=== PATIENT | female | born 1955 | race Caucasian/White ===

== ENCOUNTER 2017-12-11 07:29 | Day surgery (SDC) | payer SELFPAY ==
[~2017-12-11 07:29] MED LIST: Lactated Ringers 1,000 ML IV SCH; Lidocaine 2% 5 ML SDV ONE; Propofol 200 MG/20 ML SDV ONE; Sodium Chloride 0.9% 10 ML Syringe FLUSH PRN; Sodium Chloride 0.9% 2.5 ML Syringe FLUSH PRN; fentaNYL 100 MCG/2 ML SDV ONE
--- NOTE | 2017-12-11 09:05 | PCM.PREANE ---
Preanesthetic Assessment - Anesthesia/Transfusion/Family Hx Anesthesia History: Prior Anesthesia Without Reaction Transfusion History: No Prior Transfusion(s) - Review of Systems General: No Symptoms Pulmonary: No Symptoms Cardiovascular: No Symptoms Gastrointestinal: No Symptoms Neurological: No Symptoms - Physical Assessment NPO Status Date: 12/10/17 Height: 1.63 m Weight: 136.985 kg ASA Class: 4 Mental Status: Alert & Oriented x3 Airway Class: Mallampati = 1 Dentition: Reports: Normal Dentition ROM/Head Extension: Full Lungs: Clear to Auscultation, Normal Respiratory Effort Cardiovascular: Regular Rate, Regular Rhythm - Allergies Allergies/Adverse Reactions: Allergies Allergy/AdvReac Type Severity Reaction Status Date / Time polymyxin B Allergy Redness Verified 12/04/17 14:57 Sulfa (Sulfonamide Allergy Rash Verified 12/04/17 14:57 Antibiotics) trimethoprim Allergy Redness Verified 12/04/17 14:57 - Blood Blood Available: No - Anesthesia Plan Pre-Op Medication Ordered: None - Acknowledgements Anesthesia Type Planned: MAC Pt an Appropriate Candidate for the Planned Anesthesia: Yes Alternatives and Risks of Anesthesia Discussed w Pt/Guardian: Yes Pt/Guardian Understands and Agrees with Anesthesia Plan: Yes Additional Comments: PMH: super morbid obesity, 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: Musculoskeletal History: Reports: Fracture, Other (See Below) Other Musculoskeletal History: Osteopenia Neurological History: Reports: None Psychiatric History: Reports: Depression Endocrine/Metabolic History: Reports: Other (See Below) Other Endocrine/Metabolic History: borderline diabetic Hematologic History: Reports: None Immunologic History: Reports: None Oncologic (Cancer) History: Reports: Breast Dermatologic History: Reports: None - Infectious Disease History 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 - Past Surgical History Female Surgical History: Reports: Mastectomy, Other (See Below) Other Female Surgeries/Procedures: axillary lymph node dissection Musculoskeletal Surgical History: Reports: ORIF Other Musculoskeletal Surgeries/Procedures:: hx of ORIF right Tibia and Right Femur ( has hardware in both) Oncologic Surgical History: Reports: Mastectomy - SUBSTANCE USE Smoking Status *Q: Former Smoker Tobacco Use Within Last Twelve Months: No Days Per Week of Alcohol Use: 3 Recreational Drug Use History: No - HOME MEDS Home Medications: Home Meds Apixaban [Eliquis] 5 mg PO DAILY 12/04/17 [History] Ca Carb/D3/Mag Ox/Director Of [employer]/Clark/Zn [Caltrate+D3 Plus Mineral Minis] 1 tab PO DAILY [History] Metoprolol Succinate 50 mg PO DAILY 12/04/17 [History] Zolpidem Tartrate [Ambien] 10 mg PO BEDTIME PRN 12/04/17 [History] - CURRENT (IN HOUSE) MEDS Current Meds: Current Medications Lactated Ringer's (Ringers, Lactated) 1,000 mls @ 125 mls/hr IV ASDIRECTED TORSTEN Sodium Chloride (Saline Flush) 10 ml FLUSH ASDIRECTED PRN PRN Reason: Keep Vein Open Sodium Chloride (Saline Flush) 2.5 ml FLUSH ASDIRECTED PRN PRN Reason: Keep Vein Open Sodium Chloride (Saline Flush) 10 ml FLUSH ASDIRECTED PRN PRN Reason: Keep Vein Open Sodium Chloride (Saline Flush) 2.5 ml FLUSH ASDIRECTED PRN PRN Reason: Keep Vein Open Discontinued Medications Fentanyl (Sublimaze) Confirm Administered Dose 100 mcg .ROUTE .STK-MED ONE Stop: 12/11/17 06:52 Lidocaine (Xylocaine-Mpf 2%) Confirm Administered Dose 5 ml .ROUTE .STK-MED ONE Stop: 12/11/17 06:52 Propofol (Diprivan 20 Ml) Confirm Administered Dose 400 mg .ROUTE .STK-MED ONE Stop: 12/11/17 06:52
[2017-12-11] MEDS ORDERED: ePHEDrine 50 MG/ML SDV ONE (09:23)
--- NOTE | 2017-12-11 09:44 | PCM.POSTAN ---
POST ANESTHESIA ASSESSMENT - MENTAL STATUS Mental Status: Alert, Oriented - RESPIRATORY Respiratory Status: Respiratory Rate WNL, Airway Patent, O2 Saturation Stable - CARDIOVASCULAR CV Status: Pulse Rate WNL, Blood Pressure Stable - GASTROINTESTINAL GI Status: No Symptoms - POST OP HYDRATION Hydration Status: Adequate & Stable
--- NOTE | 2017-12-11 10:33 | PCM48HPAN ---
Post Anesthesia Note - EVALUATION WITHIN 48HRS OF ANESTHETIC Vital Signs in Normal Range: Yes Patient Participated in Evaluation: Yes Respiratory Function Stable: Yes Airway Patent: Yes Cardiovascular Function Stable: Yes Hydration Status Stable: Yes Pain Control Satisfactory: Yes Nausea and Vomiting Control Satisfactory: Yes Mental Status Recovered: Yes Resp Rate: 22
[2017-12-11 11:53] VITALS: BP 124/69
--- NOTE | 2017-12-11 12:46 | PCM.OPNOTE ---
- General Post-Op/Procedure Note Date of Surgery/Procedure: 12/11/17 Operative Procedure(s): Screening colonoscopy Findings: Incomplete colonoscopy. Unable to pass scope past 40 cm due to narrowing. Biopsies taken at this level. Sigmoid colon polyp around 30 cm. Pre Op Diagnosis: Screening colonoscopy Post-Op Diagnosis: Incomplete colonoscopy due to tortuosity and narrowing of the lumen in the sigmoid colon, sigmoid colon polyp Anesthesia Technique: [facility] [place] Primary Surgeon: Tasha Adrian Condition: Good Free Text/Narrative:: Intake & Output 12/10/17 12/11/17 12/11/17 22:59 06:59 14:59 Intake Total 600 Balance 600
--- NOTE | 2017-12-11 14:23 | OR ---
SURGEON: IDA FRANCO MD DATE OF PROCEDURE: 12/11/2017 PREOPERATIVE DIAGNOSIS: Screening colonoscopy. POSTOPERATIVE DIAGNOSES: Incomplete colonoscopy, diverticulosis, sigmoid colon polyp. PROCEDURE PERFORMED: Colonoscopy. ANESTHESIA: MAC. INSTRUMENT USED: Olympus colonoscope. EXTENT OF EXAM: 40 cm into the sigmoid colon. PREPARATION: Good. LIMITATIONS: Narrowing and tortuosity of the sigmoid colon. INDICATIONS: The patient is a 62-year-old female, who presents for a screening colonoscopy. We discussed the procedure, expected perioperative course, and risks including bleeding, infection, or damage to surrounding structures including perforation. The patient verbalized understanding and wishes to proceed. PROCEDURE IN DETAIL: The patient was brought to the endoscopy suite and placed in the left lateral decubitus position. A time-out was completed verifying the patient's name, age, date of , allergies, and procedure to be performed. Monitored anesthesia care was induced and continuous oxygen was provided via nasal cannula throughout the procedure. After adequate sedation was achieved, a digital rectal exam was performed. This exam was within normal limits. A well lubricated colonoscope was inserted in the rectum and I attempted to transverse the scope under direct visualization through the colon. At approximately 30 cm, I started having difficulty passing the scope through. The mucosa appeared normal. However, the colon itself was tortuous and the lumen was narrowed. I had pressure applied to the patient's abdomen and placed her in a different position. However, despite multiple attempts, I was unable to transverse past this area. The decision was made to stop any further attempts of advancing the scope. Biopsies were taken at the level of the narrowing and sent, labeled as sigmoid colon biopsy #1. The scope was then fully withdrawn while examining the color, texture, anatomy, and integrity of the mucosa of remainder of the distal colon. The patient was noted to have scattered diverticula. At approximately 30 cm, there was a small 2 to 3 mm sessile polyp. This was removed using a cold biopsy forceps. The remainder of the colon appeared normal. The scope was brought into the rectum and retroflexed. This appeared normal and a photograph was taken. The scope was then straightened out and fully withdrawn. The patient tolerated the procedure well and was taken to PACU in stable condition. ENDOSCOPIC DIAGNOSIS: Incomplete colonoscopy due to tortuosity and narrowing of the sigmoid colon. RECOMMENDATIONS: I visited with the patient in the postoperative care area and explained why I was unable to complete a colonoscopy. I recommended she undergo barium enema today to better visualize the proximal colon. The patient verbalized understanding and will undergo a barium enema later on this afternoon. I will follow up on the results of this with her and determine any further treatment plan from there. ASTRID CLEMENT /[id number]
--- NOTE | 2017-12-11 16:53 | CR ---
EXAMINATION: Single contrast barium enema HISTORY: Incomplete colonoscopy COMPARISON: CT dated 10/02/2007 TECHNIQUE: Standard single contrast barium enema was performed. FINDINGS: The rectum is normal in caliber. There is a long segment of moderate narrowing of the sigmo id colon with irregular mucosa. Multiple small diverticula are also noted within this region. The rem aining colon appears normally distensible. 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 IMPRESSION: 1. Long segment of moderate irregular narrowing of the sigmoid colon. Given the appearance this likel y represents long-standing inflammation, possibly from underlying diverticulosis. A neoplastic proces s is less likely.
== END 2017-12-11 11:30 | disposition home or self-care (01) ==
LOC: MW.SDS 07:29
PROVIDERS: ATTEND Surgery
DX: Z12.11 Encounter for screening for malignant neoplasm of colon (principal); K63.5 Polyp of colon; K57.30 Diverticulosis of large intestine without perforation or abscess without bleeding; K56.2 Volvulus; I10 Essential (primary) hypertension; E66.01 Morbid (severe) obesity due to excess calories; Z68.43 Body mass index [BMI] 50.0-59.9, adult; I48.91 Unspecified atrial fibrillation; R73.03 Prediabetes; F32.9 Major depressive disorder, single episode, unspecified; Z87.891 Personal history of nicotine dependence; Z79.01 Long term (current) use of anticoagulants; Z79.899 Other long term (current) drug therapy; Z88.2 Allergy status to sulfonamides; Z88.8 Allergy status to other drugs, medicaments and biological substances
CPT/HCPCS: 45331; 74270; J2704; J3010; J7120

== ENCOUNTER 2018-10-14 20:30 | Emergency (ER) | payer BC ==
--- NOTE | 2018-10-14 20:51 | EDM.PDOC ---
ED HPI GENERAL MEDICAL PROBLEM - General Chief Complaint: Genitourinary Problem Stated Complaint: PT HAS PAIN ON LT SIDE Time Seen by Provider: 10/14/18 20:51 Source of Information: Reports: Patient - History of Present Illness INITIAL COMMENTS - FREE TEXT/NARRATIVE: HISTORY AND PHYSICAL: History of present illness: [Patient presents with dark urination some frequency and mild 2-4 out of 10 left lower quadrant discomfort no fever nausea vomiting chills sweats] Review of systems: As per history of present illness and below otherwise all systems reviewed and negative. Past medical history: As per history of present illness and as reviewed below otherwise noncontributory. Surgical history: As per history of present illness and as reviewed below otherwise noncontributory. Social history: No reported history of drug or alcohol abuse. Family history: As per history of present illness and as reviewed below otherwise noncontributory. Physical exam: HEENT: Atraumatic, normocephalic, pupils reactive, negative for conjunctival pallor or scleral icterus, mucous membranes moist, throat clear, neck supple, nontender, trachea midline. Lungs: Clear to auscultation, breath sounds equal bilaterally, chest nontender. Heart: S1S2, regular, negative for clicks, rubs, or JVD. Abdomen: Soft, nondistended, nontender. Negative for masses or hepatosplenomegaly. Negative for costovertebral tenderness. Pelvis: Stable nontender. Genitourinary: Deferred. Rectal: Deferred. Extremities: Atraumatic, negative for cords or calf pain. Neurovascular unremarkable. Neuro: Awake, alert, oriented. Cranial nerves II through XII unremarkable. Cerebellum unremarkable. Motor and sensory unremarkable throughout. Exam nonfocal. Diagnostics: [UA ] Therapeutics: [Cipro Tramadol We did discuss possibility of a mild diverticulitis as well however patient was not interested in lab and imaging at this time, Cipro would cover both however patient would rather follow clinically return if symptoms persist or worsen ] Impression: [UTI Chronic history of baseline] Definitive disposition and diagnosis as appropriate pending reevaluation and review of above. Left Lower Pelvic Pain Score (Numeric/FACES): 4 - Related Data Allergies Allergy/AdvReac Type Severity Reaction Status Date / Time polymyxin B Allergy Redness Verified 10/14/18 20:40 Sulfa (Sulfonamide Allergy Rash Verified 10/14/18 20:40 Antibiotics) trimethoprim Allergy Redness Verified 10/14/18 20:40 Home Meds: Home Meds Apixaban [Eliquis] 5 mg PO DAILY 12/04/17 [History] Ca Carb/D3/Mag Ox/Pharmacy Specialist/Clark/Zn [Caltrate+D3 Plus Mineral Minis] 1 tab PO DAILY [History] Metoprolol Succinate 50 mg PO DAILY 12/04/17 [History] Zolpidem Tartrate [Ambien] 10 mg PO BEDTIME PRN 12/04/17 [History] Past Medical History HEENT History: Reports: None Cardiovascular History: Reports: Afib, Hypertension Respiratory History: Reports: None Gastrointestinal History: Reports: None Genitourinary History: Reports: None 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: Musculoskeletal History: Reports: Fracture, Other (See Below) Other Musculoskeletal History: Osteopenia Neurological History: Reports: None Psychiatric History: Reports: Depression Endocrine/Metabolic History: Reports: Obesity/BMI 30+ Other Endocrine/Metabolic History: borderline diabetic Hematologic History: Reports: None Immunologic History: Reports: None Oncologic (Cancer) History: Reports: Breast Dermatologic History: Reports: None - Infectious Disease History 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 - Past Surgical History Female Surgical History: Reports: Mastectomy, Other (See Below) Other Female Surgeries/Procedures: axillary lymph node dissection Musculoskeletal Surgical History: Reports: ORIF Other Musculoskeletal Surgeries/Procedures:: hx of ORIF right Tibia and Right Femur ( has hardware in both) Oncologic Surgical History: Reports: Mastectomy Social & Family History - Family History Family Medical History: Noncontributory Cardiac: Reports: Hypertension Other Cardiac Family History: Per patient, "both of my parents had heart issues. " - Tobacco Use Smoking Status *Q: Never Smoker Second Hand Smoke Exposure: No - Caffeine Use Caffeine Use: Reports: None - Recreational Drug Use Recreational Drug Use: No ED ROS GENERAL - Review of Systems Review Of Systems: See Below ED EXAM, GENERAL - Physical Exam Exam: See Below Course - Vital Signs Last Recorded V/S: Last Vital Signs Temp 96.8 F 10/14/18 20:40 Pulse 99 10/14/18 20:40 Resp 16 10/14/18 20:40 BP 118/88 10/14/18 20:40 Pulse Ox 95 10/14/18 20:40 - Orders/Labs/Meds Orders: Active Orders 24 hr Category Date Time Status CULTURE URINE [RM] Stat Lab 10/14/18 20:40 Received UA W/MICROSCOPIC [URIN] Stat Lab 10/14/18 20:40 Results Labs: Laboratory Tests 10/14/18 Range/Units 20:40 Urine Color YELLOW Urine Appearance CLOUDY Urine pH 5.5 (5.0-8.0) Ur Specific Valdez <= 1.005 (1.001-1.035) Urine Protein NEGATIVE (NEGATIVE) mg/dL Urine Glucose (UA) NEGATIVE (NEGATIVE) mg/dL Urine Ketones NEGATIVE (NEGATIVE) mg/dL Urine Occult Blood MODERATE H (NEGATIVE) Urine Nitrite NEGATIVE (NEGATIVE) Urine Bilirubin NEGATIVE (NEGATIVE) Urine Urobilinogen 4.0 H (<2.0) EU/dL Ur Leukocyte Esterase SMALL H (NEGATIVE) Departure - Departure Time of Disposition: 21:14 Disposition: Home, Self-Care 01 Condition: Good Clinical Impression: UTI, Urinary tract infectious disease - Discharge Information Referrals: Jean Burch MD [Primary Care Provider] - Forms: ED Department Discharge Additional Instructions: The following information is given to patients seen in the emergency department who are being discharged to home. This information is to outline your options for follow-up care. We provide all patients seen in our emergency department with a follow-up referral. The need for follow-up, as well as the timing and circumstances, are variable depending upon the specifics of your emergency department visit. If you don't have a primary care physician on staff, we will provide you with a referral. We always advise you to contact your personal physician following an emergency department visit to inform them of the circumstance of the visit and for follow-up with them and/or the need for any referrals to a consulting specialist. The emergency department will also refer you to a specialist when appropriate. This referral assures that you have the opportunity for follow-up care with a specialist. All of these measure are taken in an effort to provide you with optimal care, which includes your follow-up. Under all circumstances we always encourage you to contact your private physician who remains a resource for coordinating your care. When calling for follow-up care, please make the office aware that this follow-up is from your recent emergency room visit. If for any reason you are refused follow-up, please contact the [facility] emergency department at and asked to speak to the emergency department charge nurse. - My Orders Last 24 Hours: My Active Orders 10/14/18 20:40 CULTURE URINE [RM] Stat UA W/MICROSCOPIC [URIN] Stat - Assessment/Plan Last 24 Hours: My Active Orders 10/14/18 20:40 CULTURE URINE [RM] Stat UA W/MICROSCOPIC [URIN] Stat
[2018-10-14 21:24] VITALS: BP 130/82
== END 2018-10-14 21:24 | disposition home or self-care (01) ==
LOC: MW.ED 20:30
DX: N39.0 Urinary tract infection, site not specified (principal); I10 Essential (primary) hypertension; I48.91 Unspecified atrial fibrillation; F32.9 Major depressive disorder, single episode, unspecified; Z88.2 Allergy status to sulfonamides; Z88.8 Allergy status to other drugs, medicaments and biological substances; Z79.899 Other long term (current) drug therapy
CPT/HCPCS: 81001; 87086; 87088; 87186; 99283; 99284

== ENCOUNTER 2018-10-22 23:48 | Emergency (ER) | payer BC ==
--- NOTE | 2018-10-23 00:02 | EDM.PDOC ---
Addendum entered and electronically signed by Lina Robertson MD 10/23/18 02: 27: Critical care time excluding procedures : 40min Original Note: <Lina Robertson - Last Filed: 10/23/18 02:24> ED HPI GENERAL MEDICAL PROBLEM - General Stated Complaint: AMB Time Seen by Provider: 10/22/18 23:59 - History of Present Illness INITIAL COMMENTS - FREE TEXT/NARRATIVE: This is Dr. Robertson dictating addendum note as in the supervising physician on this case. On my evaluation the patient is chronically ill and looks somewhat toxic but is answering simple questions and performing simple commands. She tells me that her abdomen hurts and on exam it is very globular with multiple scars and there is distention but no rebound or guarding. The remainder the exam is as above. The patient on back exam has no evidence of any crepitus or defects deformities or soft tissue swelling or injuries. The patient continues to maintain her blood pressure but looks ill and still has diffuse abdominal pain. I discussed this case with both the ER physician and the surgeon at [facility] in [place] and they do not feel comfortable with transfer there as Dr. Chavez does not feel that he has the resources to care for this patient. [facility] in [place] is full so we are currently trying [facility] in [place] for transfer. I attempted to have the patient transferred to [facility] in [place] but as they are full I then subsequent weight talked to the doctors at [facility]. I spoke with the hospitalist Dr. Yi @ [phone] Fung at 2:18 AM. The except the patient for transfer and Dr. Fung would like a dose of Flagyl to also be given. They are aware that the patient has made very little urine output and her Gonzalez so we did not obtain a UA. We are continuing with fluid resuscitation and flight team is now here for packaging and transfer. Excepting physicians are aware of the complications of this case including her A. fib and anticoagulation use and her prolonged illness. All images have been sent to the receiving facility. I've also discussed with the at bedside the severity of this problem and the patient is also aware and understand why she needs transfer for higher level of care. They're accepting of this. The patient is awake and alert and has not required any pain medications at this point. CO level ABG and ammonia levels were canceled Impression: Left pelvic abscess with retroperitoneal gas/fasciitis - Related Data Allergies Allergy/AdvReac Type Severity Reaction Status Date / Time polymyxin B Allergy Redness Verified 10/14/18 20:40 Sulfa (Sulfonamide Allergy Rash Verified 10/14/18 20:40 Antibiotics) trimethoprim Allergy Redness Verified 10/14/18 20:40 Home Meds: Home Meds Apixaban [Eliquis] 5 mg PO DAILY 12/04/17 [History] Ca Carb/D3/Mag Ox/[employer]visor/Clark/Zn [Caltrate+D3 Plus Mineral Minis] 1 tab PO DAILY [History] Metoprolol Succinate 50 mg PO DAILY 12/04/17 [History] Zolpidem Tartrate [Ambien] 10 mg PO BEDTIME PRN 12/04/17 [History] ED ROS GENERAL - Review of Systems Review Of Systems: ROS reveals no pertinent complaints other than HPI. ED EXAM, GI/ABD - Physical Exam Exam: See Below (see dictation) Course - Vital Signs Last Recorded V/S: Last Vital Signs Temp 97.6 F 10/23/18 02:19 Pulse 88 10/23/18 02:19 Resp 16 10/23/18 02:19 BP 107/50 L 10/23/18 02:19 Pulse Ox 93 L 10/23/18 02:19 - Orders/Labs/Meds Orders: Active Orders 24 hr Category Date Time Status EKG Documentation Completion [RC] STAT Care 10/23/18 00:11 Active CULTURE BLOOD [BC] Stat Lab 10/23/18 01:05 Received CULTURE BLOOD [BC] Stat Lab 10/23/18 01:15 Results Sodium Chloride 0.9% [Saline Flush] Med 10/23/18 00:04 Active 10 ml FLUSH ASDIRECTED PRN Sodium Chloride 0.9% [Saline Flush] Med 10/23/18 00:04 Active 2.5 ml FLUSH ASDIRECTED PRN Blood Culture x2 Reflex Set [OM.PC] Stat Oth 10/23/18 00:02 Ordered Saline Lock Insert [OM.PC] Stat Oth 10/23/18 00:04 Ordered Medication Orders Sodium Chloride (Saline Flush) 10 ml FLUSH ASDIRECTED PRN PRN Reason: Keep Vein Open Sodium Chloride (Saline Flush) 2.5 ml FLUSH ASDIRECTED PRN PRN Reason: Keep Vein Open Labs: Laboratory Tests 10/22/18 10/22/18 10/22/18 Range/Units 00:02 00:02 23:50 WBC 22.96 H (4.0-11.0) K/uL RBC 3.92 L (4.30-5.90) M/uL Hgb 14.8 (12.0-16.0) g/dL Hct 43.2 (36.0-46.0) % MCV 110.2 H (80.0-98.0) fL MCH 37.8 H (27.0-32.0) pg MCHC 34.3 (31.0-37.0) g/dL RDW Std Deviation 59.2 (28.0-62.0) fl RDW Coeff of Hernan 15 (11.0-15.0) % Plt Count 187 (150-400) K/uL MPV 13.10 H (7.40-12.00) fL Add Manual Diff YES Neutrophils % (Manual) 62 (48.0-80.0) % Band Neutrophils % 22 % Lymphocytes % (Manual) 12 L (16.0-40.0) % Monocytes % (Manual) 4 (0.0-15.0) % Nucleated RBC % 0.4 /100WBC Absolute Seg Neuts 14.2 H (1.4-5.7) Band Neutrophils # 5.1 Lymphocytes # (Manual) 2.8 H (0.6-2.4) Monocytes # (Manual) 0.9 H (0.0-0.8) Nucleated RBCs # 0 K/uL Lactate 6.1 H (0.20-2.00) mmol/L Sodium (136-145) mmol/L Potassium (3.5-5.1) mmol/L Chloride (98-107) mmol/L Carbon Dioxide (21.0-32.0) mmol/L BUN (7.0-18.0) mg/dL Creatinine (0.6-1.0) mg/dL Est Cr Clr Drug Dosing Estimated GFR (MDRD) ml/min Glucose (74-106) mg/dL Calcium (8.5-10.1) mg/dL Magnesium 1.6 L (1.8-2.4) mg/dL Total Bilirubin (0.2-1.0) mg/dL AST (15-37) IU/L ALT (14-63) IU/L Alkaline Phosphatase (46-116) U/L Creatine Kinase 193 (26-308) U/L Troponin I < 0.050 (0.000-0.056) ng/mL Total Protein (6.4-8.2) g/dL Albumin (3.4-5.0) g/dL Globulin (2.6-4.0) g/dL Albumin/Globulin Ratio (0.9-1.6) Lipase (73-393) U/L Urine Opiates Screen (NEGATIVE) Ur Oxycodone Screen (NEGATIVE) Urine Methadone Screen (NEGATIVE) Ur Barbiturates Screen (NEGATIVE) Ur Phencyclidine Scrn (NEGATIVE) Ur Amphetamine Screen (NEGATIVE) U Methamphetamines Scrn (NEGATIVE) U Benzodiazepines Scrn (NEGATIVE) U Cocaine Metab Screen (NEGATIVE) U Marijuana (THC) Screen (NEGATIVE) Ethyl Alcohol < 3.0 mg/dL 10/22/18 10/23/18 Range/Units 23:50 01:02 WBC (4.0-11.0) K/uL RBC (4.30-5.90) M/uL Hgb (12.0-16.0) g/dL Hct (36.0-46.0) % MCV (80.0-98.0) fL MCH (27.0-32.0) pg MCHC (31.0-37.0) g/dL RDW Std Deviation (28.0-62.0) fl RDW Coeff of Hernan (11.0-15.0) % Plt Count (150-400) K/uL MPV (7.40-12.00) fL Add Manual Diff Neutrophils % (Manual) (48.0-80.0) % Band Neutrophils % % Lymphocytes % (Manual) (16.0-40.0) % Monocytes % (Manual) (0.0-15.0) % Nucleated RBC % /100WBC Absolute Seg Neuts (1.4-5.7) Band Neutrophils # Lymphocytes # (Manual) (0.6-2.4) Monocytes # (Manual) (0.0-0.8) Nucleated RBCs # K/uL Lactate (0.20-2.00) mmol/L Sodium 128 L (136-145) mmol/L Potassium 4.5 (3.5-5.1) mmol/L Chloride 90 L (98-107) mmol/L Carbon Dioxide 22.8 (21.0-32.0) mmol/L BUN 36 H (7.0-18.0) mg/dL Creatinine 3.9 H (0.6-1.0) mg/dL Est Cr Clr Drug Dosing TNP Estimated GFR (MDRD) 11.7 ml/min Glucose 91 (74-106) mg/dL Calcium 8.6 (8.5-10.1) mg/dL Magnesium (1.8-2.4) mg/dL Total Bilirubin 1.0 (0.2-1.0) mg/dL AST 93 H (15-37) IU/L ALT 35 (14-63) IU/L Alkaline Phosphatase 166 H (46-116) U/L Creatine Kinase (26-308) U/L Troponin I (0.000-0.056) ng/mL Total Protein 8.0 (6.4-8.2) g/dL Albumin 1.8 L (3.4-5.0) g/dL Globulin 6.2 H (2.6-4.0) g/dL Albumin/Globulin Ratio 0.3 L (0.9-1.6) Lipase 228 (73-393) U/L Urine Opiates Screen POSITIVE (NEGATIVE) Ur Oxycodone Screen POSITIVE (NEGATIVE) Urine Methadone Screen NEGATIVE (NEGATIVE) Ur Barbiturates Screen NEGATIVE (NEGATIVE) Ur Phencyclidine Scrn NEGATIVE (NEGATIVE) Ur Amphetamine Screen NEGATIVE (NEGATIVE) U Methamphetamines Scrn NEGATIVE (NEGATIVE) U Benzodiazepines Scrn NEGATIVE (NEGATIVE) U Cocaine Metab Screen NEGATIVE (NEGATIVE) U Marijuana (THC) Screen NEGATIVE (NEGATIVE) Ethyl Alcohol mg/dL Meds: Medications Generic Name Dose Route Start Last Admin Trade Name Freq PRN Reason Stop Dose Admin Sodium Chloride 10 ml 10/23/18 00:04 Saline Flush FLUSH ASDIRECTED PRN Keep Vein Open Sodium Chloride 2.5 ml 10/23/18 00:04 Saline Flush FLUSH ASDIRECTED PRN Keep Vein Open Discontinued Medications Generic Name Dose Route Start Last Admin Trade Name Freq PRN Reason Stop Dose Admin Sodium Chloride 1,000 mls @ 999 mls/hr 10/23/18 00:04 10/23/18 01:32 Normal Saline IV 10/23/18 01:04 999 mls/hr STAT ONE Administration Piperacillin Sod/Tazobactam 100 mls @ 100 mls/hr 10/23/18 01:22 10/23/18 01: 32 Sod 4.5 gm/ Sodium Chloride IV 10/23/18 02:21 100 mls/hr ONETIME ONE Administration Sodium Chloride 1,000 mls @ 999 mls/hr 10/23/18 01:54 10/23/18 01:57 Normal Saline IV 10/23/18 02:54 999 mls/hr .Bolus ONE Administration Metronidazole 500 mg/ Premix 100 mls @ 100 mls/hr 10/23/18 02:19 IV 10/23/18 03:18 ONETIME ONE Departure - Departure Time of Disposition: 02:26 Disposition: DC/Tfer to Acute Hospital 02 Condition: Serious Clinical Impression: Abdominal abscess, Retroperitoneal air - Discharge Information Referrals: PCP,None [Primary Care Provider] - - My Orders Last 24 Hours: My Active Orders 10/23/18 00:02 Blood Culture x2 Reflex Set [OM.PC] Stat 10/23/18 00:04 Sodium Chloride 0.9% [Saline Flush] 10 ml FLUSH ASDIRECTED PRN Sodium Chloride 0.9% [Saline Flush] 2.5 ml FLUSH ASDIRECTED PRN Saline Lock Insert [OM.PC] Stat 10/23/18 00:11 EKG Documentation Completion [RC] STAT 10/23/18 01:05 CULTURE BLOOD [BC] Stat 10/23/18 01:15 CULTURE BLOOD [BC] Stat - Assessment/Plan Last 24 Hours: My Active Orders 10/23/18 00:02 Blood Culture x2 Reflex Set [OM.PC] Stat 10/23/18 00:04 Sodium Chloride 0.9% [Saline Flush] 10 ml FLUSH ASDIRECTED PRN Sodium Chloride 0.9% [Saline Flush] 2.5 ml FLUSH ASDIRECTED PRN Saline Lock Insert [OM.PC] Stat 10/23/18 00:11 EKG Documentation Completion [RC] STAT 10/23/18 01:05 CULTURE BLOOD [BC] Stat 10/23/18 01:15 CULTURE BLOOD [BC] Stat <Delfino Andrade E - Last Filed: 10/23/18 10:06> ED HPI GENERAL MEDICAL PROBLEM - General Source of Information: Reports: Patient, EMS History Limitations: Reports: No Limitations - History of Present Illness INITIAL COMMENTS - FREE TEXT/NARRATIVE: HISTORY AND PHYSICAL: History of present illness: Patient is a 63-year-old female who presents to the emergency room via EMS after complaints of a fall. EMS reports that they were called to the scene after she had fallen to the ground. When they arrived on scene patient was laying on the floor and she was lethargic appearing. reports she didn't actually "fall but slumped to the ground". EMS Reports that her blood sugar was 53. They were unable to access an IV but she did tolerate taking sublingual glucose tablets and then drank some soda. Patient states she is borderline diabetic but has not been put on any medications for this. Denies any previous histories of hypoglycemia or needing any form of treatment for her blood sugars. She was recently seen in the emergency room on 10/14/18 for dysuria and dark urine. She was treated for a UTI and prescribed Cipro. The culture on the urine showed test positive for Escherichia coli. The patient and family states that the patient was evaluated on that date for "a stomach infection". States since that visit she has had decreased oral intake. Has not been eating and drinking but in small amounts. Has been complaining of abdominal pain and distention. Patient denies any fever, chills, headache, change in vision, syncope or near syncope. Denies any chest pain, back pain, shortness of breath or cough. Denies any nausea, vomiting, diarrhea, or constipation. Past medical history of atrial fibrillation, hypertension, borderline diabetic, breast mastectomy on the left. Review of systems: As per history of present illness and below otherwise all systems reviewed and negative. Past medical history: As per history of present illness and as reviewed below otherwise noncontributory. Surgical history: As per history of present illness and as reviewed below otherwise noncontributory. Social history: See social history for further information Family history: As per history of present illness and as reviewed below otherwise noncontributory. Physical exam: General: Chronically ill appearing 63-year-old female. Alert but slow to respond to questioning, appears to have altered mental status. HEENT: Nontender with palpation, normocephalic, pupils equal and reactive bilaterally, negative for conjunctival pallor or scleral icterus, mucous membranes dry, TMs normal bilaterally, throat clear, neck supple, nontender, trachea midline. No drooling or trismus noted. No meningeal signs. No hot potato voice noted. Lungs: Clear to auscultation, breath sounds equal bilaterally, chest nontender. Heart: S1S2, regular rate and rhythm without overt murmur Abdomen: Distended, obese and tender in all 4 quadrants. Negative for masses. Negative for costovertebral tenderness. Pelvis: Stable nontender. Skin: Intact, warm, dry. No lesions or rashes noted. Extremities: Atraumatic, moves all extremities per self without difficulty or deficits, negative for cords or calf pain. Neurovascular unremarkable. Neuro: Awake, alert, oriented. Cranial nerves II through XII unremarkable. Cerebellum unremarkable. Motor and sensory unremarkable throughout. Exam nonfocal. Notes: Upon arrival blood sugar was rechecked and it is 121. IV was established. IV fluids given for hypotension. I was able to do a brief exam upon patient arrival. Dr. Robertson will assume care of this patient and follow diagnostics and treat appropriately. Diagnostics: CBC, CMP, Lactate, Lipase, UA, Drug Screen, CT abd/pelvis, Head CT, CXR, Carboxy , Ammonia Therapeutics: IV fluids Impression: Altered Mental Status Definitive disposition and diagnosis as appropriate pending reevaluation and review of above. Past Medical History HEENT History: Reports: None Cardiovascular History: Reports: Afib, Hypertension Respiratory History: Reports: None Gastrointestinal History: Reports: None Genitourinary History: Reports: None FORENSIC ANTHROPOLOGIST History: Reports: Musculoskeletal History: Reports: Fracture, Other (See Below) Other Musculoskeletal History: Osteopenia Neurological History: Reports: None Psychiatric History: Reports: Depression Endocrine/Metabolic History: Reports: Obesity/BMI 30+ Other Endocrine/Metabolic History: borderline diabetic Hematologic History: Reports: None Immunologic History: Reports: None Oncologic (Cancer) History: Reports: Breast Dermatologic History: Reports: None - Infectious Disease History 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 - Past Surgical History Female Surgical History: Reports: Mastectomy, Other (See Below) Other Female Surgeries/Procedures: axillary lymph node dissection Musculoskeletal Surgical History: Reports: ORIF Other Musculoskeletal Surgeries/Procedures:: hx of ORIF right Tibia and Right Femur ( has hardware in both) Oncologic Surgical History: Reports: Mastectomy Social & Family History - Family History Family Medical History: Noncontributory Cardiac: Reports: Hypertension Other Cardiac Family History: Per patient, "both of my parents had heart issues. " - Caffeine Use Caffeine Use: Reports: None ED ROS GENERAL - Review of Systems Review Of Systems: ROS reveals no pertinent complaints other than HPI. ED EXAM, GI/ABD - Physical Exam Exam: See Below Course - Vital Signs Last Recorded V/S: Last Vital Signs Temp 97.6 F 10/23/18 02:19 Pulse 88 10/23/18 02:19 Resp 16 10/23/18 02:19 BP 107/50 L 10/23/18 02:19 Pulse Ox 93 L 10/23/18 02:19 - Orders/Labs/Meds Orders: Active Orders 24 hr Category Date Time Status EKG Documentation Completion [RC] STAT Care 10/23/18 00:11 Active CULTURE BLOOD [BC] Stat Lab 10/23/18 01:05 Received CULTURE BLOOD [BC] Stat Lab 10/23/18 01:15 Results Sodium Chloride 0.9% [Saline Flush] Med 10/23/18 00:04 Active 10 ml FLUSH ASDIRECTED PRN Sodium Chloride 0.9% [Saline Flush] Med 10/23/18 00:04 Active 2.5 ml FLUSH ASDIRECTED PRN Blood Culture x2 Reflex Set [OM.PC] Stat Oth 10/23/18 00:02 Ordered Saline Lock Insert [OM.PC] Stat Oth 10/23/18 00:04 Ordered Medication Orders Sodium Chloride (Saline Flush) 10 ml FLUSH ASDIRECTED PRN PRN Reason: Keep Vein Open Sodium Chloride (Saline Flush) 2.5 ml FLUSH ASDIRECTED PRN PRN Reason: Keep Vein Open Labs: Laboratory Tests 10/22/18 10/22/18 10/22/18 Range/Units 00:02 00:02 23:50 WBC 22.96 H (4.0-11.0) K/uL RBC 3.92 L (4.30-5.90) M/uL Hgb 14.8 (12.0-16.0) g/dL Hct 43.2 (36.0-46.0) % MCV 110.2 H (80.0-98.0) fL MCH 37.8 H (27.0-32.0) pg MCHC 34.3 (31.0-37.0) g/dL RDW Std Deviation 59.2 (28.0-62.0) fl RDW Coeff of Hernan 15 (11.0-15.0) % Plt Count 187 (150-400) K/uL MPV 13.10 H (7.40-12.00) fL Add Manual Diff YES Neutrophils % (Manual) 62 (48.0-80.0) % Band Neutrophils % 22 % Lymphocytes % (Manual) 12 L (16.0-40.0) % Monocytes % (Manual) 4 (0.0-15.0) % Nucleated RBC % 0.4 /100WBC Absolute Seg Neuts 14.2 H (1.4-5.7) Band Neutrophils # 5.1 Lymphocytes # (Manual) 2.8 H (0.6-2.4) Monocytes # (Manual) 0.9 H (0.0-0.8) Nucleated RBCs # 0 K/uL Lactate 6.1 H (0.20-2.00) mmol/L Sodium (136-145) mmol/L Potassium (3.5-5.1) mmol/L Chloride (98-107) mmol/L Carbon Dioxide (21.0-32.0) mmol/L BUN (7.0-18.0) mg/dL Creatinine (0.6-1.0) mg/dL Est Cr Clr Drug Dosing Estimated GFR (MDRD) ml/min Glucose (74-106) mg/dL Calcium (8.5-10.1) mg/dL Magnesium 1.6 L (1.8-2.4) mg/dL Total Bilirubin (0.2-1.0) mg/dL AST (15-37) IU/L ALT (14-63) IU/L Alkaline Phosphatase (46-116) U/L Creatine Kinase 193 (26-308) U/L Troponin I < 0.050 (0.000-0.056) ng/mL Total Protein (6.4-8.2) g/dL Albumin (3.4-5.0) g/dL Globulin (2.6-4.0) g/dL Albumin/Globulin Ratio (0.9-1.6) Lipase (73-393) U/L Urine Opiates Screen (NEGATIVE) Ur Oxycodone Screen (NEGATIVE) Urine Methadone Screen (NEGATIVE) Ur Barbiturates Screen (NEGATIVE) Ur Phencyclidine Scrn (NEGATIVE) Ur Amphetamine Screen (NEGATIVE) U Methamphetamines Scrn (NEGATIVE) U Benzodiazepines Scrn (NEGATIVE) U Cocaine Metab Screen (NEGATIVE) U Marijuana (THC) Screen (NEGATIVE) Ethyl Alcohol < 3.0 mg/dL 10/22/18 10/23/18 Range/Units 23:50 01:02 WBC (4.0-11.0) K/uL RBC (4.30-5.90) M/uL Hgb (12.0-16.0) g/dL Hct (36.0-46.0) % MCV (80.0-98.0) fL MCH (27.0-32.0) pg MCHC (31.0-37.0) g/dL RDW Std Deviation (28.0-62.0) fl RDW Coeff of Hernan (11.0-15.0) % Plt Count (150-400) K/uL MPV (7.40-12.00) fL Add Manual Diff Neutrophils % (Manual) (48.0-80.0) % Band Neutrophils % % Lymphocytes % (Manual) (16.0-40.0) % Monocytes % (Manual) (0.0-15.0) % Nucleated RBC % /100WBC Absolute Seg Neuts (1.4-5.7) Band Neutrophils # Lymphocytes # (Manual) (0.6-2.4) Monocytes # (Manual) (0.0-0.8) Nucleated RBCs # K/uL Lactate (0.20-2.00) mmol/L Sodium 128 L (136-145) mmol/L Potassium 4.5 (3.5-5.1) mmol/L Chloride 90 L (98-107) mmol/L Carbon Dioxide 22.8 (21.0-32.0) mmol/L BUN 36 H (7.0-18.0) mg/dL Creatinine 3.9 H (0.6-1.0) mg/dL Est Cr Clr Drug Dosing TNP Estimated GFR (MDRD) 11.7 ml/min Glucose 91 (74-106) mg/dL Calcium 8.6 (8.5-10.1) mg/dL Magnesium (1.8-2.4) mg/dL Total Bilirubin 1.0 (0.2-1.0) mg/dL AST 93 H (15-37) IU/L ALT 35 (14-63) IU/L Alkaline Phosphatase 166 H (46-116) U/L Creatine Kinase (26-308) U/L Troponin I (0.000-0.056) ng/mL Total Protein 8.0 (6.4-8.2) g/dL Albumin 1.8 L (3.4-5.0) g/dL Globulin 6.2 H (2.6-4.0) g/dL Albumin/Globulin Ratio 0.3 L (0.9-1.6) Lipase 228 (73-393) U/L Urine Opiates Screen POSITIVE (NEGATIVE) Ur Oxycodone Screen POSITIVE (NEGATIVE) Urine Methadone Screen NEGATIVE (NEGATIVE) Ur Barbiturates Screen NEGATIVE (NEGATIVE) Ur Phencyclidine Scrn NEGATIVE (NEGATIVE) Ur Amphetamine Screen NEGATIVE (NEGATIVE) U Methamphetamines Scrn NEGATIVE (NEGATIVE) U Benzodiazepines Scrn NEGATIVE (NEGATIVE) U Cocaine Metab Screen NEGATIVE (NEGATIVE) U Marijuana (THC) Screen NEGATIVE (NEGATIVE) Ethyl Alcohol mg/dL Meds: Medications Generic Name Dose Route Start Last Admin Trade Name Freq PRN Reason Stop Dose Admin Sodium Chloride 10 ml 10/23/18 00:04 Saline Flush FLUSH ASDIRECTED PRN Keep Vein Open Sodium Chloride 2.5 ml 10/23/18 00:04 Saline Flush FLUSH ASDIRECTED PRN Keep Vein Open Discontinued Medications Generic Name Dose Route Start Last Admin Trade Name Freq PRN Reason Stop Dose Admin Sodium Chloride 1,000 mls @ 999 mls/hr 10/23/18 00:04 10/23/18 01:32 Normal Saline IV 10/23/18 01:04 999 mls/hr STAT ONE Administration Piperacillin Sod/Tazobactam 100 mls @ 100 mls/hr 10/23/18 01:22 10/23/18 01: 32 Sod 4.5 gm/ Sodium Chloride IV 10/23/18 02:21 100 mls/hr ONETIME ONE Administration Sodium Chloride 1,000 mls @ 999 mls/hr 10/23/18 01:54 10/23/18 01:57 Normal Saline IV 10/23/18 02:54 999 mls/hr .Bolus ONE Administration Metronidazole 500 mg/ Premix 100 mls @ 100 mls/hr 10/23/18 02:19 IV 10/23/18 03:18 ONETIME ONE - My Orders Last 24 Hours: My Active Orders 10/23/18 00:02 Blood Culture x2 Reflex Set [OM.PC] Stat 10/23/18 00:04 Sodium Chloride 0.9% [Saline Flush] 10 ml FLUSH ASDIRECTED PRN Sodium Chloride 0.9% [Saline Flush] 2.5 ml FLUSH ASDIRECTED PRN Saline Lock Insert [OM.PC] Stat 10/23/18 00:11 EKG Documentation Completion [RC] STAT 10/23/18 01:05 CULTURE BLOOD [BC] Stat 10/23/18 01:15 CULTURE BLOOD [BC] Stat - Assessment/Plan Last 24 Hours: My Active Orders 10/23/18 00:02 Blood Culture x2 Reflex Set [OM.PC] Stat 10/23/18 00:04 Sodium Chloride 0.9% [Saline Flush] 10 ml FLUSH ASDIRECTED PRN Sodium Chloride 0.9% [Saline Flush] 2.5 ml FLUSH ASDIRECTED PRN Saline Lock Insert [OM.PC] Stat 10/23/18 00:11 EKG Documentation Completion [RC] STAT 10/23/18 01:05 CULTURE BLOOD [BC] Stat 10/23/18 01:15 CULTURE BLOOD [BC] Stat
[2018-10-23] MEDS ORDERED: Sodium Chloride 0.9% 1,000 ML IV ONE ×2 (00:04→01:54)
[2018-10-23] MEDS ORDERED: Sodium Chloride 0.9% 2.5 ML Syringe FLUSH PRN (00:04)
[2018-10-23] MEDS ORDERED: Sodium Chloride 0.9% 10 ML Syringe FLUSH PRN (00:04)
[2018-10-23 00:43] LABS: CHLORIDE,CL 90 mmol/L (98-107); SODIUM,NA 128 mmol/L (136-145)
--- NOTE | 2018-10-23 01:04 | CR ---
INDICATION: Altered mental status TECHNIQUE: Chest radiograph 1 view COMPARISON: None FINDINGS: Severe degradation of image quality noted due to body habitus. 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 Moderate cardiomegaly is present. Right Port-A-Cath present with tip in SVC. Lung: Moderate pulmonary vascular congestion and mild perihilar edema suspected. Minimal bibasilar atelectasis seen. No sign of pleural effusion seen. No pneumothorax is identified. IMPRESSIONS: 1. Moderate pulmonary vascular congestion and mild perihilar edema suspected. 2. Moderate cardiomegaly is present. Dictated by Jairon Vance MD @ 10/23/2018 1:03:23 AM Dictated by: Jairon Vance MD @ 10/23/2018 01:03:25 (Electronically Signed)
--- NOTE | 2018-10-23 01:06 | CT ---
INDICATION: Altered mental status TECHNIQUE: CT Head without i.v. contrast. COMPARISON: None FINDINGS: CSF space: The ventricles are normal for age. Brain: No evidence of mass, acute infarction or hemorrhage is seen. No mass-effect or midline shift is seen. Evaluation of the posterior cranial fossa is limited by beam hardening artifacts. Moderate cortical atrophy is present in the frontal lobes bilaterally. Calvarium: Opacification of a diminutive left maxillary sinus with sinus wall thickening noted, likely due to chronic sinusitis. The mastoid air cells are clear. The visualized orbits are grossly unremarkable. The calvarium is unremarkable in appearance with no fractures identified. IMPRESSION: 1. No evidence of acute infarction, intracranial hemorrhage, or mass-effect seen. The findings were discussed with Dr. Robertson at 1:05 AM. Dictated by Jairon Vance MD @ 10/23/2018 1:02:22 AM Please note that all CT scans at this facility use dose modulation, iterative reconstruction, and/or weight-based dosing when appropriate to reduce radiation dose to as low as reasonably achievable. Dictated by: Jairon Vance MD @ 10/23/2018 01:05:45 (Electronically Signed)
--- NOTE | 2018-10-23 01:17 | CT ---
INDICATION: Altered mental status TECHNIQUE: CT Abdomen and pelvis without i.v. contrast. Coronal and sagittal reformats were obtained. COMPARISON: None FINDINGS: Moderate image quality degradation noted due to beam hardening artifacts from scanning with the arms by the patient`s sides and body habitus. Lower chest: Unremarkable. Liver: Calcified hepatic granulomas are noted. The liver has a nodular capsular contour, consistent with micronodular cirrhosis. No focal liver lesions are identified. Spleen: Unremarkable. Pancreas: Unremarkable. Gallbladder: Several small calcified gallstones are noted. Kidney: Unremarkable. No kidney or ureteral stones or obstruction seen. Adrenal: Unremarkable. Bowel: Mild sigmoid diverticulosis is seen. The sigmoid colon is difficult to evaluate due to its collapsed state. The appendix is not identified. Vascular: Unremarkable. Lymph: Mild bilateral inguinal adenopathy is seen with lymph nodes measuring up to 1 cm. Peritoneum: There is a gas and fluid collection along the left pelvic sidewall that measures 7.5 x 3.7 cm. It abuts the lateral margin of the sigmoid colon. A large amount of retroperitoneal gas and inflammatory changes are present ascending from the left pelvic fluid collection into the left posterior perirenal space, to the level of the left renal lower pole. The gas abuts the left psoas muscle as well as the posterior abdominal wall. No pneumoperitoneum is seen. No significant ascites is noted. Pelvis: The bladder is decompressed and difficult to evaluate. Soft tissue: Unremarkable. Bone: Mild levoscoliosis is noted with associated facet arthritis and degenerative disc disease. Severe chronic compression deformity of L5 is present. IMPRESSIONS: 1. There is a gas and fluid collection along the left pelvic sidewall that measures 7.5 x 3.7 cm. It abuts the lateral margin of the sigmoid colon. Findings may be due to a pelvic abscess, possibly related to previous diverticulitis. 2. A large amount of retroperitoneal gas and inflammatory changes are present ascending from the left pelvic fluid collection into the left posterior perirenal space, to the level of the left renal lower pole. The gas abuts the left psoas muscle as well as the posterior abdominal wall. Retroperitoneal fasciitis should be considered. The findings were discussed with Dr. Robertson at 1:15 AM. Dictated by Jairon Vance MD @ 10/23/2018 1:15:27 AM Please note that all CT scans at this facility use dose modulation, iterative reconstruction, and/or weight-based dosing when appropriate to reduce radiation dose to as low as reasonably achievable. Dictated by: Jairon Vance MD @ 10/23/2018 01:16:01 (Electronically Signed)
[2018-10-23] MEDS ORDERED: Piperacillin/Tazobactam 4.5 GM in Sodium Chloride 0.9% 100 ML IV ONE (01:22)
[2018-10-23] MEDS ORDERED: metroNIDAZOLE/Normal Saline 500 MG in Premix Bag 1 BAG IV ONE (02:19)
[2018-10-23 02:22] VITALS: BP 107/50
== END 2018-10-23 02:23 ==
LOC: MW.ED 23:48
DX: R41.82 Altered mental status, unspecified (principal); N73.9 Female pelvic inflammatory disease, unspecified; I10 Essential (primary) hypertension; E66.9 Obesity, unspecified; I48.91 Unspecified atrial fibrillation; Z85.3 Personal history of malignant neoplasm of breast; Z88.1 Allergy status to other antibiotic agents; Z88.2 Allergy status to sulfonamides; W19.XXXA Unspecified fall, initial encounter
CPT/HCPCS: 36415; 70450; 71045; 74176; 80053; 80305; 82550; 83605; 83690; 83735; 84484; 85025; 87040; 93005; 96360; 96361; 96365; 99291; 99292; G0480; J2543; J7030; J7040

== ENCOUNTER 2019-03-23 15:07 | Emergency (ER) | payer BC ==
--- NOTE | 2019-03-23 15:19 | EDM.PDOC ---
<Scott Starr - Last Filed: 03/23/19 19:38> ED HPI GENERAL MEDICAL PROBLEM - General Chief Complaint: General Stated Complaint: PAIN Time Seen by Provider: 03/23/19 15:08 - History of Present Illness INITIAL COMMENTS - FREE TEXT/NARRATIVE: Patient was received in sign out redirecting plan based on CT abdomen pelvis findings seen and examined the patient and agree with the above Impression Abdominal abscess Plan Redirecting transfer to [facility], patient request, no ground transport available, transport [facility] fixed wing dr Martines accepting general surgeon, patient to go to ER [place] disposition and diagnosis as appropriate pending reevaluation and review of above - Related Data Allergies Allergy/AdvReac Type Severity Reaction Status Date / Time polymyxin B Allergy Redness Verified 03/23/19 15:09 Sulfa (Sulfonamide Allergy Rash Verified 03/23/19 15:09 Antibiotics) trimethoprim Allergy Redness Verified 03/23/19 15:09 Home Meds: Home Meds Apixaban [Eliquis] 5 mg PO DAILY 12/04/17 [History] Calcium/D3/Mag Ox/Filter Machine Operator/Clark/Zn [Caltrate+D3 Plus Mineral Minis] 1 tab PO DAILY [History] Metoprolol Succinate 50 mg PO DAILY 12/04/17 [History] Zolpidem Tartrate [Ambien] 10 mg PO BEDTIME PRN 12/04/17 [History] Course - Vital Signs Last Recorded V/S: Last Vital Signs Temp 96.7 F 03/23/19 20:04 Pulse 100 03/23/19 20:07 Resp 18 03/23/19 20:07 BP 122/79 03/23/19 20:07 Pulse Ox 95 03/23/19 20:07 - Orders/Labs/Meds Labs: Laboratory Tests 03/23/19 03/23/19 03/23/19 Range/Units 16:30 16:30 16:30 WBC 14.46 H (4.0-11.0) K/uL RBC 3.91 L (4.30-5.90) M/uL Hgb 11.8 L (12.0-16.0) g/dL Hct 36.5 (36.0-46.0) % MCV 93.4 (80.0-98.0) fL MCH 30.2 (27.0-32.0) pg MCHC 32.3 (31.0-37.0) g/dL RDW Std Deviation 47.2 (28.0-62.0) fl RDW Coeff of Hernan 14 (11.0-15.0) % Plt Count 313 (150-400) K/uL MPV 11.50 (7.40-12.00) fL Add Manual Diff YES Neutrophils % (Manual) 77 (48.0-80.0) % Band Neutrophils % 9 % Lymphocytes % (Manual) 11 L (16.0-40.0) % Monocytes % (Manual) 3 (0.0-15.0) % Nucleated RBC % 0.0 /100WBC Absolute Seg Neuts 11.1 H (1.4-5.7) Band Neutrophils # 1.3 Lymphocytes # (Manual) 1.6 (0.6-2.4) Monocytes # (Manual) 0.4 (0.0-0.8) Nucleated RBCs # 0 K/uL Lactate 1.9 (0.20-2.00) mmol/L Sodium 135 L (136-145) mmol/L Potassium 4.4 (3.5-5.1) mmol/L Chloride 100 (98-107) mmol/L Carbon Dioxide 23.0 (21.0-32.0) mmol/L BUN 13 (7.0-18.0) mg/dL Creatinine 0.8 (0.6-1.0) mg/dL Est Cr Clr Drug Dosing 62.96 mL/min Estimated GFR (MDRD) > 60.0 ml/min Glucose 102 (74-106) mg/dL Calcium 8.6 (8.5-10.1) mg/dL Total Bilirubin 0.6 (0.2-1.0) mg/dL AST 126 H (15-37) IU/L ALT 34 (14-63) IU/L Alkaline Phosphatase 131 H (46-116) U/L Total Protein 7.6 (6.4-8.2) g/dL Albumin 1.9 L (3.4-5.0) g/dL Globulin 5.7 H (2.6-4.0) g/dL Albumin/Globulin Ratio 0.3 L (0.9-1.6) Lipase 65 L (73-393) U/L Urine Color Urine Appearance Urine pH (5.0-8.0) Ur Specific [place] (1.001-1.035) Urine Protein (NEGATIVE) mg/dL Urine Glucose (UA) (NEGATIVE) mg/dL Urine Ketones (NEGATIVE) mg/dL Urine Occult Blood (NEGATIVE) Urine Nitrite (NEGATIVE) Urine Bilirubin (NEGATIVE) Urine Ictotest Urine Urobilinogen (<2.0) EU/dL Ur Leukocyte Esterase (NEGATIVE) Urine RBC (0-2/HPF) Urine WBC (0-5/HPF) Ur Epithelial Cells (NONE-FEW) Amorphous Sediment (NEGATIVE) Urine Bacteria (NEGATIVE) 03/23/19 Range/Units 16:40 WBC (4.0-11.0) K/uL RBC (4.30-5.90) M/uL Hgb (12.0-16.0) g/dL Hct (36.0-46.0) % MCV (80.0-98.0) fL MCH (27.0-32.0) pg MCHC (31.0-37.0) g/dL RDW Std Deviation (28.0-62.0) fl RDW Coeff of Hernan (11.0-15.0) % Plt Count (150-400) K/uL MPV (7.40-12.00) fL Add Manual Diff Neutrophils % (Manual) (48.0-80.0) % Band Neutrophils % % Lymphocytes % (Manual) (16.0-40.0) % Monocytes % (Manual) (0.0-15.0) % Nucleated RBC % /100WBC Absolute Seg Neuts (1.4-5.7) Band Neutrophils # Lymphocytes # (Manual) (0.6-2.4) Monocytes # (Manual) (0.0-0.8) Nucleated RBCs # K/uL Lactate (0.20-2.00) mmol/L Sodium (136-145) mmol/L Potassium (3.5-5.1) mmol/L Chloride (98-107) mmol/L Carbon Dioxide (21.0-32.0) mmol/L BUN (7.0-18.0) mg/dL Creatinine (0.6-1.0) mg/dL Est Cr Clr Drug Dosing mL/min Estimated GFR (MDRD) ml/min Glucose (74-106) mg/dL Calcium (8.5-10.1) mg/dL Total Bilirubin (0.2-1.0) mg/dL AST (15-37) IU/L ALT (14-63) IU/L Alkaline Phosphatase (46-116) U/L Total Protein (6.4-8.2) g/dL Albumin (3.4-5.0) g/dL Globulin (2.6-4.0) g/dL Albumin/Globulin Ratio (0.9-1.6) Lipase (73-393) U/L Urine Color DARK YELLOW Urine Appearance CLEAR Urine pH 5.5 (5.0-8.0) Ur Specific [place] 1.015 (1.001-1.035) Urine Protein 30 H (NEGATIVE) mg/dL Urine Glucose (UA) NEGATIVE (NEGATIVE) mg/dL Urine Ketones TRACE H (NEGATIVE) mg/dL Urine Occult Blood NEGATIVE (NEGATIVE) Urine Nitrite NEGATIVE (NEGATIVE) Urine Bilirubin SMALL H (NEGATIVE) Urine Ictotest NEGATIVE Urine Urobilinogen 1.0 (<2.0) EU/dL Ur Leukocyte Esterase NEGATIVE (NEGATIVE) Urine RBC 0-2 (0-2/HPF) Urine WBC 1-3 (0-5/HPF) Ur Epithelial Cells NOT SEEN (NONE-FEW) Amorphous Sediment MODERATE (NEGATIVE) Urine Bacteria RARE (NEGATIVE) Meds: Medications Discontinued Medications Generic Name Dose Route Start Last Admin Trade Name Sundayq PRN Reason Stop Dose Admin Sodium Chloride 1,000 mls @ 150 mls/hr 03/23/19 15:09 03/23/19 16:13 Normal Saline IV 03/23/19 21:48 150 mls/hr STAT ONE Administration Ciprofloxacin/Dextrose 400 mg/ 200 mls @ 200 mls/hr 03/23/19 18:04 03/23/19 19:00 Premix IV 03/23/19 19:03 200 mls/hr NOW STA Administration Metronidazole 500 mg/ Premix 100 mls @ 100 mls/hr 03/23/19 18:04 03/23/19 20: 06 IV 03/23/19 19:03 100 mls/hr ONETIME ONE Administration Iopamidol 100 ml 03/23/19 18:24 03/23/19 18:24 Isovue Multipack-370 (76%) IVPUSH 03/23/19 18:25 100 ml ONETIME STA Administration Lorazepam 1 mg 03/23/19 19:09 03/23/19 19:26 Ativan IVPUSH 03/23/19 19:10 1 mg ONETIME ONE Administration Nystatin 1 gm 03/23/19 16:44 03/23/19 17:54 Nystop TOP 03/23/19 16:45 Not Given NOW STA Nystatin 1 gm 03/23/19 16:56 03/23/19 17:54 Nystop TOP 03/23/19 16:57 1 dose NOW STA Administration Sodium Chloride 10 ml 03/23/19 15:09 03/23/19 16:14 Saline Flush FLUSH 10 ml ASDIRECTED PRN Administration Keep Vein Open Sodium Chloride 2.5 ml 03/23/19 15:09 03/23/19 16:14 Saline Flush FLUSH 2.5 ml ASDIRECTED PRN Administration Keep Vein Open Departure - Departure Disposition: DC/Tfer to [facility] 02 Clinical Impression: Abdominal abscess Leukocytosis Qualifiers: Leukocytosis type: unspecified Qualified Code(s): D72.829 - Elevated white blood cell count, unspecified Abdominal pain Qualifiers: Abdominal location: generalized Qualified Code(s): R10.84 - Generalized abdominal pain - Discharge Information Referrals: Jean Burch MD [Primary Care Provider] - Forms: ED Department Discharge Sepsis Event Note - Focused Exam Date Exam was Performed: 03/23/19 Time Exam was Performed: 19:38 <Delfino Andrade E - Last Filed: 03/25/19 10:08> ED HPI GENERAL MEDICAL PROBLEM - General Source of Information: Reports: Patient History Limitations: Reports: No Limitations - History of Present Illness INITIAL COMMENTS - FREE TEXT/NARRATIVE: HISTORY AND PHYSICAL: History of present illness: Patient is a 63 year old female who presents to the ED with complaints of weakness, generalized abdominal tenderness, fevers and diarrhea. Patient states she was seen in the ED in October 2018 and was transferred to [place] for a diverticulitis that ended up forming an abscess. This required drainage and a hospital stay of 14 weeks. She states she was ultimately discharged to home February 17 and has been receiving Home Care. She has felt weak, had intermittent fevers and generalized abdominal tenderness over the past 2 weeks. Last week she called Dr Jean Burch, who prescribed her Augmentin (now completed ) and she stated she felt somewhat better. Symptoms have returned over the past 3-4 days and have progressively gotten worse. 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 Patient denies any headache, change in vision, syncope or near syncope. Denies any chest pain, back pain, shortness of breath or cough. Denies any vomiting, constipation or dysuria. Has not noted any blood in urine or stool. Patient has been eating and drinking appropriately. Review of systems: As per history of present illness and below otherwise all systems reviewed and negative. Past medical history: As per history of present illness and as reviewed below otherwise noncontributory. Surgical history: As per history of present illness and as reviewed below otherwise noncontributory. Social history: See social history for further information Family history: As per history of present illness and as reviewed below otherwise noncontributory. Physical exam: General: Well developed, well nourished, but chronically ill appearing 63 year old female. Alert and orientated. Nontoxic appearing and in no acute distress. HEENT: Atraumatic, normocephalic, pupils equal and reactive bilaterally, negative for conjunctival pallor or scleral icterus, mucous membranes moist, TMs normal bilaterally, throat clear, neck supple, nontender, trachea midline. No drooling or trismus noted. No meningeal signs. No hot potato voice noted. Lungs: Clear to auscultation, breath sounds equal bilaterally, chest nontender. Heart: S1S2, irregular rate and rhythm without overt murmur (history of a.fib) Abdomen: Soft, nondistended, obese, nontender. Negative for masses. Negative for costovertebral tenderness. Pelvis: Stable nontender. Skin: Pale/yao hue. Healing scars noted to abdomen. Otherwise skin is intact, warm, dry. No lesions or rashes noted. Extremities: Atraumatic, moves all extremities per self without difficulty or deficits, negative for cords or calf pain. Neurovascular unremarkable. Neuro: Awake, alert, oriented. Cranial nerves II through XII unremarkable. Cerebellum unremarkable. Motor and sensory unremarkable throughout. Exam nonfocal. Notes: Nursing staff and asset accountant having difficulty starting an IV and drawing labs. Dr Gallegos was able to get IV access. CT results pending. Dr Gallegos will follow these results. Spoke with Dr Carlos about admiting this patient for her abdominal pain and leukocytosis pending no abnormal CT results. Diagnostics: CBC, CMP, BC x 2, UA, Lactic, CT abd/pelvis Therapeutics: IV fluids, Cipro, Flagyl Impression: Leukocytosis Abdominal Abscess Definitive disposition and diagnosis as appropriate pending reevaluation and review of above. Past Medical History HEENT History: Reports: None Cardiovascular History: Reports: Afib, Hypertension Respiratory History: Reports: None Gastrointestinal History: Reports: None Genitourinary History: Reports: None DIRECTOR OF PLANNING History: Reports: Musculoskeletal History: Reports: Fracture, Other (See Below) Other Musculoskeletal History: Osteopenia Neurological History: Reports: None Psychiatric History: Reports: Depression Endocrine/Metabolic History: Reports: Obesity/BMI 30+ Other Endocrine/Metabolic History: borderline diabetic Hematologic History: Reports: None Immunologic History: Reports: None Oncologic (Cancer) History: Reports: Breast Dermatologic History: Reports: None - Infectious Disease History 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 - Past Surgical History Female Surgical History: Reports: Mastectomy, Other (See Below) Other Female Surgeries/Procedures: axillary lymph node dissection Musculoskeletal Surgical History: Reports: ORIF Other Musculoskeletal Surgeries/Procedures:: hx of ORIF right Tibia and Right Femur ( has hardware in both) Oncologic Surgical History: Reports: Mastectomy Social & Family History - Family History Family Medical History: Noncontributory Cardiac: Reports: Hypertension Other Cardiac Family History: Per patient, "both of my parents had heart issues. " - Caffeine Use Caffeine Use: Reports: None ED ROS GENERAL - Review of Systems Review Of Systems: Comprehensive ROS is negative, except as noted in HPI. ED EXAM, GENERAL - Physical Exam Exam: See Below (See dictation) Course - Vital Signs Last Recorded V/S: Last Vital Signs Temp 96.7 F 03/23/19 20:04 Pulse 100 03/23/19 20:07 Resp 18 03/23/19 20:07 BP 122/79 03/23/19 20:07 Pulse Ox 95 03/23/19 20:07 - Orders/Labs/Meds Labs: Laboratory Tests 03/23/19 03/23/19 03/23/19 Range/Units 16:30 16:30 16:30 WBC 14.46 H (4.0-11.0) K/uL RBC 3.91 L (4.30-5.90) M/uL Hgb 11.8 L (12.0-16.0) g/dL Hct 36.5 (36.0-46.0) % MCV 93.4 (80.0-98.0) fL MCH 30.2 (27.0-32.0) pg MCHC 32.3 (31.0-37.0) g/dL RDW Std Deviation 47.2 (28.0-62.0) fl RDW Coeff of Hernan 14 (11.0-15.0) % Plt Count 313 (150-400) K/uL MPV 11.50 (7.40-12.00) fL Add Manual Diff YES Neutrophils % (Manual) 77 (48.0-80.0) % Band Neutrophils % 9 % Lymphocytes % (Manual) 11 L (16.0-40.0) % Monocytes % (Manual) 3 (0.0-15.0) % Nucleated RBC % 0.0 /100WBC Absolute Seg Neuts 11.1 H (1.4-5.7) Band Neutrophils # 1.3 Lymphocytes # (Manual) 1.6 (0.6-2.4) Monocytes # (Manual) 0.4 (0.0-0.8) Nucleated RBCs # 0 K/uL Lactate 1.9 (0.20-2.00) mmol/L Sodium 135 L (136-145) mmol/L Potassium 4.4 (3.5-5.1) mmol/L Chloride 100 (98-107) mmol/L Carbon Dioxide 23.0 (21.0-32.0) mmol/L BUN 13 (7.0-18.0) mg/dL Creatinine 0.8 (0.6-1.0) mg/dL Est Cr Clr Drug Dosing 62.96 mL/min Estimated GFR (MDRD) > 60.0 ml/min Glucose 102 (74-106) mg/dL Calcium 8.6 (8.5-10.1) mg/dL Total Bilirubin 0.6 (0.2-1.0) mg/dL AST 126 H (15-37) IU/L ALT 34 (14-63) IU/L Alkaline Phosphatase 131 H (46-116) U/L Total Protein 7.6 (6.4-8.2) g/dL Albumin 1.9 L (3.4-5.0) g/dL Globulin 5.7 H (2.6-4.0) g/dL Albumin/Globulin Ratio 0.3 L (0.9-1.6) Lipase 65 L (73-393) U/L Urine Color Urine Appearance Urine pH (5.0-8.0) Ur Specific [place] (1.001-1.035) Urine Protein (NEGATIVE) mg/dL Urine Glucose (UA) (NEGATIVE) mg/dL Urine Ketones (NEGATIVE) mg/dL Urine Occult Blood (NEGATIVE) Urine Nitrite (NEGATIVE) Urine Bilirubin (NEGATIVE) Urine Ictotest Urine Urobilinogen (<2.0) EU/dL Ur Leukocyte Esterase (NEGATIVE) Urine RBC (0-2/HPF) Urine WBC (0-5/HPF) Ur Epithelial Cells (NONE-FEW) Amorphous Sediment (NEGATIVE) Urine Bacteria (NEGATIVE) 03/23/19 Range/Units 16:40 WBC (4.0-11.0) K/uL RBC (4.30-5.90) M/uL Hgb (12.0-16.0) g/dL Hct (36.0-46.0) % MCV (80.0-98.0) fL MCH (27.0-32.0) pg MCHC (31.0-37.0) g/dL RDW Std Deviation (28.0-62.0) fl RDW Coeff of Hernan (11.0-15.0) % Plt Count (150-400) K/uL MPV (7.40-12.00) fL Add Manual Diff Neutrophils % (Manual) (48.0-80.0) % Band Neutrophils % % Lymphocytes % (Manual) (16.0-40.0) % Monocytes % (Manual) (0.0-15.0) % Nucleated RBC % /100WBC Absolute Seg Neuts (1.4-5.7) Band Neutrophils # Lymphocytes # (Manual) (0.6-2.4) Monocytes # (Manual) (0.0-0.8) Nucleated RBCs # K/uL Lactate (0.20-2.00) mmol/L Sodium (136-145) mmol/L Potassium (3.5-5.1) mmol/L Chloride (98-107) mmol/L Carbon Dioxide (21.0-32.0) mmol/L BUN (7.0-18.0) mg/dL Creatinine (0.6-1.0) mg/dL Est Cr Clr Drug Dosing mL/min Estimated GFR (MDRD) ml/min Glucose (74-106) mg/dL Calcium (8.5-10.1) mg/dL Total Bilirubin (0.2-1.0) mg/dL AST (15-37) IU/L ALT (14-63) IU/L Alkaline Phosphatase (46-116) U/L Total Protein (6.4-8.2) g/dL Albumin (3.4-5.0) g/dL Globulin (2.6-4.0) g/dL Albumin/Globulin Ratio (0.9-1.6) Lipase (73-393) U/L Urine Color DARK YELLOW Urine Appearance CLEAR Urine pH 5.5 (5.0-8.0) Ur Specific [place] 1.015 (1.001-1.035) Urine Protein 30 H (NEGATIVE) mg/dL Urine Glucose (UA) NEGATIVE (NEGATIVE) mg/dL Urine Ketones TRACE H (NEGATIVE) mg/dL Urine Occult Blood NEGATIVE (NEGATIVE) Urine Nitrite NEGATIVE (NEGATIVE) Urine Bilirubin SMALL H (NEGATIVE) Urine Ictotest NEGATIVE Urine Urobilinogen 1.0 (<2.0) EU/dL Ur Leukocyte Esterase NEGATIVE (NEGATIVE) Urine RBC 0-2 (0-2/HPF) Urine WBC 1-3 (0-5/HPF) Ur Epithelial Cells NOT SEEN (NONE-FEW) Amorphous Sediment MODERATE (NEGATIVE) Urine Bacteria RARE (NEGATIVE) Departure - Departure Time of Disposition: 18:04 Sepsis Event Note - Focused Exam Date Exam was Performed: 03/25/19 Time Exam was Performed: 10:07
[2019-03-23] MEDS: Sodium Chloride 0.9% 1,000 ML IV ONE (16:13)
[2019-03-23] MEDS: Sodium Chloride 0.9% 2.5 ML Syringe FLUSH PRN (16:14)
[2019-03-23] MEDS: Sodium Chloride 0.9% 10 ML Syringe FLUSH PRN (16:14)
[2019-03-23 17:01] LABS: BLOOD UREA NITROGEN,BUN 13 mg/dL (7.0-18.0); CHLORIDE,CL 100 mmol/L (98-107); GLUCOSE RANDOM 102 mg/dL (74-106); LIPASE 65 U/L (73-393); POTASSIUM,K 4.4 mmol/L (3.5-5.1); SODIUM,NA 135 mmol/L (136-145)
[2019-03-23] MEDS: Nystatin Topical Powder 15 GM Bottle TOP STA ×2 (17:54)
[2019-03-23] MEDS: Iopamidol 755 MG/ML 500 ML Multipack Bottle IVPUSH STA (18:24)
[2019-03-23] MEDS: Ciprofloxacin in D5W 400 MG in Premix Bag 1 BAG IV STA ×2 (19:00)
--- NOTE | 2019-03-23 19:17 | CT ---
INDICATION: Recent diverticulitis, pain TECHNIQUE: CT abdomen and pelvis acquired with 100 cc Isovue 370 intravenous contrast. COMPARISON: Abdomen and pelvis CT 10/23/2018 FINDINGS: Lower chest: Small left pleural effusion with some dependent atelectasis in the left lower lobe. Coronary atherosclerosis. Liver: Normal in contour with a 17 millimeter cyst within the left lobe. Or other smaller hypodense lesions are identified which are similar to the prior examination and most likely also represent cysts. Calcifications consistent with old granulomatous disease. Gallbladder and bile ducts: Cholelithiasis without pericholecystic inflammation. Pancreas: Unremarkable. No mass or inflammation. Spleen: Unremarkable. Normal in size. No masses. Adrenal glands: Unremarkable. No nodules. Kidneys: Unremarkable. No masses, stones, or hydronephrosis. Bowel and peritoneum: The stomach is decompressed. There are no dilated loops of large or small intestine. However, note is made of extensive diverticular disease. At the level of the proximal sigmoid colon there is extraluminal air and fluid which is inseparable from the lateral wall of the proximal sigmoid with air tracking into the retroperitoneum along the margin of the left iliacus muscle extending laterally with adjacent fat stranding. Mild expansion of the abdominal wall muscle as well as infiltration of the subcutaneous fat adjacent. This tracks cephalad deep to the psoas musculature with a more well-defined rim enhancement posterior to the lower pole of left kidney. This is consistent with a retroperitoneal/abdominal wall abscess reaching a maximal diameter 14.2 x 8.4 centimeters. Abscess also extends superficially into the deep subcutaneous tissues at this level. Superior margin of the abscess is at the level of the left 12th rib. Vasculature: Unremarkable. Pelvis: Unremarkable. Bones: Intramedullary denys within the right proximal femur. Old L5 compression fracture. IMPRESSION: 1. Colonic diverticulosis with free air and fluid tracking from the left hemipelvis into the retroperitoneum and abdominal wall with a more defined retroperitoneal/abdominal wall abscess reaching as high as the 12th rib as detailed above. Findings are consistent with complicated/perforated diverticulitis. 2. Other incidental findings as noted above. Discussed with Dr. Starr at 1858 on 03/23/2019 Please note that all CT scans at this facility use dose modulation, iterative reconstruction, and/or weight-based dosing when appropriate to reduce radiation dose to as low as reasonably achievable. Dictated by Riley Holland MD @ Mar 23 2019 6:54PM Signed by Dr. Riley Holland @ Mar 23 2019 7:15PM
[2019-03-23] MEDS: LORazepam 2 MG/ML SDV IVPUSH ONE (19:26)
[2019-03-23] MEDS: metroNIDAZOLE/Normal Saline 500 MG in Premix Bag 1 BAG IV ONE (20:06)
[2019-03-23 20:08] VITALS: BP 122/79; PULSE 100
== END 2019-03-23 20:20 ==
LOC: MW.ED 15:07 → UNDOADMOB 18:16 → MW.MS 18:16
DX: L02.211 Cutaneous abscess of abdominal wall (principal); D72.829 Elevated white blood cell count, unspecified; R10.84 Generalized abdominal pain; I10 Essential (primary) hypertension; I48.91 Unspecified atrial fibrillation; E66.9 Obesity, unspecified; Z68.37 Body mass index [BMI] 37.0-37.9, adult; Z88.1 Allergy status to other antibiotic agents; Z79.01 Long term (current) use of anticoagulants; Z79.899 Other long term (current) drug therapy; Z88.2 Allergy status to sulfonamides
CPT/HCPCS: 36415; 74177; 80053; 81001; 83605; 83690; 85025; 87040; 93005; 96361; 96365; 96367; 96375; 99285; A9270; J0744; J2060; J3490; J7030; Q9967

== ENCOUNTER 2019-04-22 17:29 | Emergency (ER) | payer BC ==
[2019-04-22 17:48] VITALS: BP 118/68; PULSE 75
--- NOTE | 2019-04-22 18:12 | EDM.PDOC ---
ED HPI GENERAL MEDICAL PROBLEM - General Chief Complaint: Skin Complaint Stated Complaint: RASH Time Seen by Provider: 04/22/19 18:00 Source of Information: Reports: Patient History Limitations: Reports: No Limitations - History of Present Illness INITIAL COMMENTS - FREE TEXT/NARRATIVE: HISTORY AND PHYSICAL: History of present illness: Patient is a 63-year-old female who presents to the ED today with concern of rash to her bilateral forearms and bilateral thighs that started yesterday. Patient states that she has been in [place] receiving IV antibiotics for an abdominal abscess and was just discharged to [facility] with her half-way on Friday. Patient states over the weekend she also started a new antibiotic IV to continue treating the abscess. Patient states that she just arrived to [place] on Friday and since then has been using all new different soaps, laundry detergents, and all new products that she has not been using prior. Patient states she started noticing a rash on her forearms yesterday which she states does burn when she uses the soap at the half-way. Patient states she has tried putting lotion on the rash and does notice that this helps with the symptoms. Patient denies any other symptoms or concerns. Patient denies fever, chills, chest pain, shortness of breath, or cough. Denies headache, neck stiff ness, change in vision, syncope, or near syncope. Denies nausea, vomiting, abdominal pain, diarrhea, constipation, or dysuria. Has not noted any blood in urine or stool. Patient has been eating and drinking appropriately. Review of systems: As per history of present illness and below otherwise all systems reviewed and negative. Past medical history: As per history of present illness and as reviewed below otherwise noncontributory. Surgical history: As per history of present illness and as reviewed below otherwise noncontributory. Social history: See social history for further information Family history: As per history of present illness and as reviewed below otherwise noncontributory. Physical exam: General: Patient is alert, oriented, and in no acute distress. Patient sitting comfortably on exam table. HEENT: Atraumatic, normocephalic, pupils equal and reactive bilaterally, negative for conjunctival pallor or scleral icterus, mucous membranes moist, TMs normal bilaterally, throat clear, neck supple, nontender, trachea midline. No drooling or trismus noted. No meningeal signs. No hot potato voice noted. Lungs: Clear to auscultation, breath sounds equal bilaterally, chest nontender. Heart: S1S2, regular rate and rhythm without overt murmur Abdomen: Soft, nondistended, nontender. Negative for masses or hepatosplenomegaly. Negative for costovertebral tenderness. Pelvis: Stable nontender. Genitourinary: Deferred. Rectal: Deferred. Skin: Intact, warm. No lesions noted. There is a very dry, lacy, non-specific rash of the bilateral forearms and bilateral knees without petechia or purpura. No urticaria or hives noted. Extremities: See skin. Otherwise, Atraumatic, negative for cords or calf pain. Neurovascular unremarkable. Chronic venous stasis noted of bilateral lower extremities with brawny appearance of bilateral lower extremities to the calf. Neuro: Awake, alert, oriented. Cranial nerves II through XII unremarkable. Cerebellum unremarkable. Motor and sensory unremarkable throughout. Exam nonfocal. Notes: Patients skin is very dry and likely contributing to dermatitis symptoms. Discussed OTC relief lotions unscented for dry skin. There is no sign of hives, urticaria or allergic reaction. Discussed importance for follow-up with a primary care provider. Voices understanding and is agreeable to plan of care. Denies any further questions or concerns at this time. Diagnostics: None Therapeutics: None Prescription: None Impression: Dermatitis Plan: 1. Use [id number] unscented lotions three times a day such as Eucerine, Avenno, or Dove. Keep dry skin moist with lotions as discussed. 2. Follow-up with your primary care provider as discussed. Return to the ED as needed and as discussed. Definitive disposition and diagnosis as appropriate pending reevaluation and review of above. - Related Data Allergies Allergy/AdvReac Type Severity Reaction Status Date / Time polymyxin B Allergy Redness Verified 04/22/19 17:44 Sulfa (Sulfonamide Allergy Rash Verified 04/22/19 17:44 Antibiotics) trimethoprim Allergy Redness Verified 04/22/19 17:44 Home Meds: Home Meds Acetaminophen [Tylenol Arthritis] 650 mg PO ASDIRECTED PRN 04/22/19 [History] Apixaban [Eliquis] 5 mg PO BID 04/22/19 [History] Escitalopram Oxalate 20 mg PO DAILY 04/22/19 [History] Fluconazole [Diflucan] 400 mg PO DAILY 04/22/19 [History] Furosemide 20 mg PO DAILY 04/22/19 [History] Hydrocodone/Acetaminophen [Hydrocodon-Acetaminophen 5-325] 1 each PO ASDIRECTED PRN 04/22/19 [History] LORazepam 1 mg PO ASDIRECTED PRN 04/22/19 [History] Levothyroxine 75 mcg PO DAILY 04/22/19 [History] Loperamide HCl [Imodium A-D] 2 mg PO ASDIRECTED PRN 04/22/19 [History] Metoprolol Tartrate 12.5 mg PO DAILY 04/22/19 [History] Mirtazapine 15 mg PO BEDTIME 04/22/19 [History] Ondansetron [Zofran] 4 mg PO ASDIRECTED PRN 04/22/19 [History] Pantoprazole Sodium 40 mg PO DAILY 04/22/19 [History] Piperacillin/Tazobactam [Zosyn] 3.375 gm IV Q8HR 04/22/19 [History] Past Medical History HEENT History: Reports: None Cardiovascular History: Reports: Afib, Hypertension Respiratory History: Reports: None Gastrointestinal History: Reports: None Genitourinary History: Reports: None BENCH SCIENTIST History: Reports: Musculoskeletal History: Reports: Fracture, Other (See Below) Other Musculoskeletal History: Osteopenia Neurological History: Reports: None Psychiatric History: Reports: Depression Endocrine/Metabolic History: Reports: Obesity/BMI 30+ Other Endocrine/Metabolic History: borderline diabetic Hematologic History: Reports: None Immunologic History: Reports: None Oncologic (Cancer) History: Reports: Breast Dermatologic History: Reports: None - Infectious Disease History 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 " - Tobacco Use Smoking Status *Q: Former Smoker Used Tobacco, but Quit: Yes Month/Year Tobacco Last Used: 2006 - Caffeine Use Caffeine Use: Reports: Coffee - Recreational Drug Use Recreational Drug Use: No ED ROS GENERAL - Review of Systems Review Of Systems: Comprehensive ROS is negative, except as noted in HPI. ED EXAM, SKIN/RASH Exam: See Below (see dictation) Course - Vital Signs Last Recorded V/S: Last Vital Signs Temp 97.0 F 04/22/19 17:45 Pulse 75 04/22/19 17:45 Resp 16 04/22/19 17:45 BP 118/68 04/22/19 17:45 Pulse Ox 98 04/22/19 17:45 Departure - Departure Time of Disposition: 18:27 Disposition: Home, Self-Care 01 Clinical Impression: Dermatitis - Discharge Information Referrals: Jean Burch MD [Primary Care Provider] - Forms: ED Department Discharge Additional Instructions: The following information is given to patients seen in the emergency department who are being discharged to home. This information is to outline your options for follow-up care. We provide all patients seen in our emergency department with a follow-up referral. The need for follow-up, as well as the timing and circumstances, are variable depending upon the specifics of your emergency department visit. If you don't have a primary care physician on staff, we will provide you with a referral. We always advise you to contact your personal physician following an emergency department visit to inform them of the circumstance of the visit and for follow-up with them and/or the need for any referrals to a consulting specialist. The emergency department will also refer you to a specialist when appropriate. This referral assures that you have the opportunity for follow-up care with a specialist. All of these measure are taken in an effort to provide you with optimal care, which includes your follow-up. Under all circumstances we always encourage you to contact your private physician who remains a resource for coordinating your care. When calling for follow-up care, please make the office aware that this follow-up is from your recent emergency room visit. If for any reason you are refused follow-up, please contact the [facility] Emergency Department at and asked to speak to the emergency department charge nurse. [facility] Primary Care [address] [place] [id number] [facility] [address] [place] [address] 1. Use [id number] unscented lotions three times a day such as Eucerine, Avenno, or Dove. Keep dry skin moist with lotions as discussed. 2. Follow-up with your primary care provider as discussed. Return to the ED as needed and as discussed. Sepsis Event Note - Evaluation Sepsis Screening Result: No Definite Risk - Focused Exam Vital Signs: Vital Signs Temp Pulse Resp BP Pulse Ox 04/22/19 17:45 97.0 F 75 16 118/68 98 Date Exam was Performed: 04/22/19 Time Exam was Performed: 18:24
== END 2019-04-22 18:44 | disposition home or self-care (01) ==
LOC: MW.ED 17:29
DX: L30.9 Dermatitis, unspecified (principal); I10 Essential (primary) hypertension; I48.91 Unspecified atrial fibrillation; F32.9 Major depressive disorder, single episode, unspecified; E66.9 Obesity, unspecified; Z68.39 Body mass index [BMI] 39.0-39.9, adult; Z87.891 Personal history of nicotine dependence; Z88.2 Allergy status to sulfonamides; Z88.1 Allergy status to other antibiotic agents; Z79.01 Long term (current) use of anticoagulants; Z79.899 Other long term (current) drug therapy
CPT/HCPCS: 99282

== ENCOUNTER 2021-03-01 19:10 | Emergency (ER) | payer BC ==
[2021-03-01] MEDS ORDERED: Diphtheria,Pertussis(Acell),Tetanus Vaccine 0.5 ML Syringe IM ONE (19:11)
[2021-03-01] MEDS ORDERED: Octyl 2-Cyanoacrylate 1 APPLIC TUBE TOP ONE (19:12)
[2021-03-01 19:22] VITALS: PULSE 62
[2021-03-01] MEDS ORDERED: Acetaminophen 325 MG Tab PO ONE (19:29)
--- NOTE | 2021-03-01 19:29 | EDM.PDOC ---
ED HPI GENERAL MEDICAL PROBLEM - General Chief Complaint: Trauma Stated Complaint: FALL Time Seen by Provider: 03/01/21 19:11 - History of Present Illness INITIAL COMMENTS - FREE TEXT/NARRATIVE: HISTORY AND PHYSICAL: History of present illness: This is a 65-year-old female with a history significant for hypertension, atrial fibrillation, on Xarelto who presents ER today secondary to losing her balance while walking on concrete to hinduism and falling down and hitting her nose on the concrete. Patient denies any loss of consciousness. Patient denies any pain to her upper or lower extremities, hip, abdomen, chest, pelvis, cervical, thoracic, lumbar spine. Patient reports pain is isolated to her nose. Patient denies any nausea, vomiting, diarrhea, fevers, shakes, chills, chest pain, shortness of breath. Patient denies any dizziness, syncope or presyncope. Patient reports currently she feels back to baseline except for pain to her nose. Patient's tetanus status is not up-to-date. Review of systems: As per history of present illness and below otherwise all systems reviewed and negative. Past medical history: As per history of present illness and as reviewed below otherwise noncontributory. Surgical history: As per history of present illness and as reviewed below otherwise noncontributory. Social history: No reported history of drug abuse. Family history: As per history of present illness and as reviewed below otherwise noncontributory. Physical exam: This patient was seen and evaluated during the 2019 SARS-CoV-2 novel coronavirus pandemic period. Community viral transmission is ongoing at time of this encounter and the emergency department is operating under pandemic response procedures. Constitutional: Patient is oriented to person, place, and time. Appears well- developed and well-nourished. No distress. HEENT: Moist mucous membranes Head: Normocephalic and atraumatic Eyes: Right eye exhibits no discharge. Left eye exhibits no discharge. No scleral icterus Neck: Normal range of motion. No tracheal deviation present. Cardiovascular: Normal rate and regular rhythm. Pulmonary: Effort normal, no respiratory distress. Abdominal: No distention Musculoskeletal: Normal range of motion Neurologic: Alert and oriented to person, place and time. Skin: [place], warm and dry. Psychiatric: Normal mood and affect. Behavior is normal. Judgment and thought content normal. Nursing note and vital signs have been reviewed Patient has no C-spine T-spine or L-spine tenderness to palpation. Patient has no left upper or right upper quadrant tenderness to palpation. Patient has no crepitus to palpation to the anterior chest wall. Patient is neurologically intact. Patient does not present with any signs or or symptoms that would be consistent with acute intracranial, intra-abdominal, intrathoracic, or long bone injury. All long bones have been palpated and range of motion been performed and there is no evidence of any acute pathology. Patient's ER physical exam is significant for a soft tissue swelling and tenderness to her nasal bridge with abrasions and 1/2 cm laceration. Diagnostics: CT head: Therapeutics: Dermabond: Tdap Tylenol Assessment and plan: 65-year-old female who presents ER today secondary to fall with head injury who is currently on Xarelto. Patient will have a CT scan of her head performed and we will reassess. Patient has no evidence of intracranial, long bone injury, spinal injury. Patient will be reassessed after CT scan and will need Tdap and Dermabond applied to her nasal injury. 8:26 PM: CT scan of the head reveals no acute bleed or acute process. Dermabond has been applied to patient's nasal bridge. Patient remains alert awake and orient x3 without any other complaints at this time. Reassessment at the time of disposition demonstrates that the patient is in no acute distress. The patient has remained stable throughout the entire ED visit and is without objective evidence for acute process requiring urgent int ervention or hospitalization. The patient is stable for discharge, counseling is provided as documented above, discussed symptomatic treatment and specific conditions for return. I have spoken with the patient/caregiver and discussed todays findings, in addition to providing specific details for the plan of care. Questions are answered and there is agreement with the plan. Definitive disposition and diagnosis as appropriate pending reevaluation and review of above. - Related Data Allergies Allergy/AdvReac Type Severity Reaction Status Date / Time polymyxin B Allergy Redness Verified 03/01/21 19:16 Sulfa (Sulfonamide Allergy Rash Verified 03/01/21 19:16 Antibiotics) trimethoprim Allergy Redness Verified 03/01/21 19:16 Home Meds: Home Meds Acetaminophen [Tylenol Arthritis] 650 mg PO ASDIRECTED PRN 04/22/19 [History] Apixaban [Eliquis] 5 mg PO BID 04/22/19 [History] Escitalopram Oxalate 20 mg PO DAILY 04/22/19 [History] Fluconazole [Diflucan] 400 mg PO DAILY 04/22/19 [History] Furosemide 20 mg PO DAILY 04/22/19 [History] Hydrocodone/Acetaminophen [Hydrocodon-Acetaminophen 5-325] 1 each PO ASDIRECTED PRN 04/22/19 [History] LORazepam 1 mg PO ASDIRECTED PRN 04/22/19 [History] Levothyroxine 75 mcg PO DAILY 04/22/19 [History] Loperamide HCl [Imodium A-D] 2 mg PO ASDIRECTED PRN 04/22/19 [History] Metoprolol Tartrate 12.5 mg PO DAILY 04/22/19 [History] Mirtazapine 15 mg PO BEDTIME 04/22/19 [History] Ondansetron [Zofran] 4 mg PO ASDIRECTED PRN 04/22/19 [History] Pantoprazole Sodium 40 mg PO DAILY 04/22/19 [History] Piperacillin/Tazobactam [Zosyn] 3.375 gm IV Q8HR 04/22/19 [History] Past Medical History HEENT History: Reports: None Cardiovascular History: Reports: Afib, Hypertension, SOB on Exertion Respiratory History: Reports: None Gastrointestinal History: Reports: GERD, Other (See Below) Genitourinary History: Reports: Urinary Incontinence C D STRIPPER History: Reports: Musculoskeletal History: Reports: Fracture, Other (See Below) Other Musculoskeletal History: Osteopenia Neurological History: Reports: None Psychiatric History: Reports: Depression Endocrine/Metabolic History: Reports: Obesity/BMI 30+ Other Endocrine/Metabolic History: Borderline DM Insulin Pump Model and Deckhand Maintenance: None Hematologic History: Reports: None Immunologic History: Reports: None Oncologic (Cancer) History: Reports: Breast Dermatologic History: Reports: None - Infectious Disease History 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, VRE - Past Surgical History GI Surgical History: Reports: Colon Other GI Surgeries/Procedures: Septic Abscess Female Surgical History: Reports: Mastectomy, Other (See Below) Other Female Surgeries/Procedures: axillary lymph node dissection Musculoskeletal Surgical History: Reports: ORIF Other Musculoskeletal Surgeries/Procedures:: hx of ORIF right Tibia and Right Femur ( has hardware in both) Oncologic Surgical History: Reports: Mastectomy Social & Family History - Family History Family Medical History: No Pertinent Family History Cardiac: Reports: Hypertension Other Cardiac Family History: Per patient, "both of my parents had heart issues." - Caffeine Use Caffeine Use: Reports: Coffee - Recreational Drug Use Recreational Drug Use: No - Living Situation & Occupation Living situation: Reports: Occupation: Retired Review of Systems - Review of Systems Review Of Systems: See Below ED EXAM, GENERAL - Physical Exam Exam: See Below ED TRAUMA PROCEDURES - Laceration/Wound Repair Nose Lac/Wound Length In cm: 2 Appearance: Superficial, Subcutaneous Distal NVT: Neuro & Vascular Intact Skin Prep: Saline Closed With: Dermabond Course - Vital Signs Last Recorded V/S: Last Vital Signs Temp 96.5 F L 03/01/21 19:10 Pulse 62 03/01/21 19:10 Resp 18 03/01/21 19:10 BP 120/63 03/01/21 19:10 Pulse Ox 95 03/01/21 19:10 - Orders/Labs/Meds Orders: Active Orders 24 hr Category Date Time Status Vaccine to be Administered/Admin Charge [RC] ASDIRECTED Care 03/01/21 19:11 Active Meds: Medications Discontinued Medications Generic Name Dose Route Start Last Admin Trade Name [place] PRN Reason Stop Dose Admin Acetaminophen 650 mg 03/01/21 19:29 03/01/21 19:44 Acetaminophen 325 Mg Tab PO 03/01/21 19:30 650 mg NOW ONE Administration Diphtheria/Tetanus/Acell Pertussis 0.5 ml 03/01/21 19:11 03/01/21 19:44 Diphtheria,Pertussis(Acell),Tetanus Vaccine 0.5 Ml Syringe IM 03/01/21 19:12 0.5 ml .ONCE ONE Administration Octyl Cyanoacrylate 1 applic 03/01/21 19:12 03/01/21 19:44 Octyl 2-Cyanoacrylate 1 Applic Tube TOP 03/01/21 19:13 1 applic ONETIME ONE Administration Departure - Departure Time of Disposition: 20:28 Disposition: Home, Self-Care 01 Condition: Good Clinical Impression: Anticoagulated, Fall in elderly patient Head injury Qualifiers: Encounter type: initial encounter Qualified Code(s): S09.90XA - Unspecified injury of head, initial encounter Nasal laceration Qualifiers: Encounter type: initial encounter Qualified Code(s): S01.21XA - Laceration without foreign body of nose, initial encounter Nasal contusion Qualifiers: Encounter type: initial encounter Qualified Code(s): S00.33XA - Contusion of nose, initial encounter - Discharge Information Instructions: Laceration Care, Adult, Head Injury, Adult, [id number], Understanding Your Risk for Falls, Tissue Adhesive Wound Care Referrals: PCP,None [Primary Care Provider] - Forms: ED Department Discharge Additional Instructions: Your seen and evaluated in the ER today secondary to a fall resulting in injury to your nose. The CT scan of your head did not reveal any bleeding or bruising to the brain. Dermabond was applied to the nasal injury. Please keep the area clean and dry do not apply any ointments to the injury for 7 days. Please make an appointment to follow-up with your family doctor in 2 to 3 days for reevaluation for any signs of infection. The following information is given to patients seen in the emergency department who are being discharged to home. This information is to outline your options for follow-up care. We provide all patients seen in our emergency department with a follow-up referral. The need for follow-up, as well as the timing and circumstances, are variable d epending upon the specifics of your emergency department visit. If you don't have a primary care physician on staff, we will provide you with a referral. We always advise you to contact your personal physician following an emergency department visit to inform them of the circumstance of the visit and for follow-up with them and/or the need for any referrals to a consulting specialist. The emergency department will also refer you to a specialist when appropriate. This referral assures that you have the opportunity for follow-up care with a specialist. All of these measure are taken in an effort to provide you with optimal care, which includes your follow-up. Under all circumstances we always encourage you to contact your private physician who remains a resource for coordinating your care. When calling for follow-up care, please make the office aware that this follow-up is from your recent emergency room visit. If for any reason you are refused follow-up, please contact the [facility] Emergency Department at and asked to speak to the emergency department charge nurse. Pender Talib [facility] - Primary Care [address] [place] [id number] [facility] [address] [place] [address] Sepsis Event Note (ED) - Evaluation Sepsis Screening Result: No Definite Risk - Focused Exam Vital Signs: Vital Signs Temp Pulse Resp BP Pulse Ox 03/01/21 19:10 96.5 F L 62 18 120/63 95 - My Orders Last 24 Hours: My Active Orders 03/01/21 19:11 Vaccine to be Administered/Admin Charge [RC] ASDIRECTED - Assessment/Plan Last 24 Hours: My Active Orders 03/01/21 19:11 Vaccine to be Administered/Admin Charge [RC] ASDIRECTED
--- NOTE | 2021-03-01 19:54 | CT ---
Indication: Trauma Technique: Noncontrast head Comparison: No comparison Findings: Noncontrast images the brain parenchyma demonstrates no acute intracranial hemorrhage or mass. No midline shift.No abnormal extra-axial air collections are seen extra-axial collections are seen. Partial opacification of the left maxillary sinus. Paranasal sinuses mastoid air cells skull and scalp otherwise appears unremarkable. Impression : 1. No acute intracranial hemorrhage or mass. Please note that all CT scans at this facility use dose modulation, iterative reconstruction, and/or weight-based dosing when appropriate to reduce radiation dose to as low as reasonably achievable. Dictated by Sahra Casillas MD @ 03/01/2021 7:51:56 PM (Electronically Signed)
[2021-03-01 20:48] VITALS: BP 126/55
== END 2021-03-01 20:40 | disposition home or self-care (01) ==
LOC: MW.ED 19:10
DX: S09.90XA Unspecified injury of head, initial encounter (principal); S01.21XA Laceration without foreign body of nose, initial encounter; I48.91 Unspecified atrial fibrillation; I10 Essential (primary) hypertension; K21.9 Gastro-esophageal reflux disease without esophagitis; E66.9 Obesity, unspecified; Z68.41 Body mass index [BMI] 40.0-44.9, adult; Z23 Encounter for immunization; Z88.1 Allergy status to other antibiotic agents; Z88.2 Allergy status to sulfonamides; Z79.01 Long term (current) use of anticoagulants; Z79.899 Other long term (current) drug therapy; W18.30XA Fall on same level, unspecified, initial encounter; Y93.01 Activity, walking, marching and hiking
CPT/HCPCS: 12011; 70450; 90471; 90715; 99284; A9270

== ENCOUNTER 2021-04-03 14:59 | Emergency (ER) | payer BC ==
--- NOTE | 2021-04-03 15:07 | EDM.PDOC ---
ED HPI GENERAL MEDICAL PROBLEM - General Chief Complaint: Chest Pain Stated Complaint: HIGH BP,CHEST PAIN,SHORTNESS OF BREATH Time Seen by Provider: 04/03/21 15:02 Source of Information: Reports: Patient History Limitations: Reports: No Limitations - History of Present Illness INITIAL COMMENTS - FREE TEXT/NARRATIVE: 65-year-old female past medical history depression, anxiety, mild CHF, hypothyroidism, Afib on Eliquis use presents for hypertension and chest pain. Patient states that she has had some generalized weakness over the day. She was at her physical therapist office around 1:30 PM and noted a slight chest pain. They took her blood pressure and noted it to be elevated at 160s over 90s. She typically runs 120s over 70s and is compliant with her antihypertensives losartan and metoprolol. She notes that she has not taken her daily Eliquis or Lasix although she has typically compliant. Currently not having any chest pain. Denies any shortness of breath. - Related Data Allergies Allergy/AdvReac Type Severity Reaction Status Date / Time polymyxin B Allergy Redness Verified 04/03/21 15:06 Sulfa (Sulfonamide Allergy Rash Verified 04/03/21 15:06 Antibiotics) trimethoprim Allergy Redness Verified 04/03/21 15:06 Home Meds: Home Meds Acetaminophen [Tylenol Arthritis] 650 mg PO ASDIRECTED PRN 04/22/19 [History] Apixaban [Eliquis] 5 mg PO BID 04/22/19 [History] Fluconazole [Diflucan] 400 mg PO DAILY 04/22/19 [History] Furosemide 40 mg PO DAILY 04/22/19 [History] Hydrocodone/Acetaminophen [Hydrocodon-Acetaminophen 5-325] 1 each PO ASDIRECTED PRN 04/22/19 [History] LORazepam 1 mg PO ASDIRECTED PRN 04/22/19 [History] Levothyroxine 75 mcg PO DAILY 04/22/19 [History] Metoprolol Tartrate 12.5 mg PO DAILY 04/22/19 [History] Mirtazapine 15 mg PO BEDTIME PRN 04/22/19 [History] Ondansetron [Zofran] 4 mg PO ASDIRECTED PRN 04/22/19 [History] Past Medical History HEENT History: Reports: None Cardiovascular History: Reports: Afib, Hypertension, SOB on Exertion Respiratory History: Reports: None Gastrointestinal History: Reports: GERD, Other (See Below) Genitourinary History: Reports: Urinary Incontinence [employer] History: Reports: Musculoskeletal History: Reports: Fracture, Other (See Below) Other Musculoskeletal History: Osteopenia Neurological History: Reports: None Psychiatric History: Reports: Depression Endocrine/Metabolic History: Reports: Obesity/BMI 30+ Other Endocrine/Metabolic History: Borderline DM Insulin Pump Model and Speech Writer: None Hematologic History: Reports: None Immunologic History: Reports: None Oncologic (Cancer) History: Reports: Breast Dermatologic History: Reports: None - Infectious Disease History 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, VRE - Past Surgical History GI Surgical History: Reports: Colon Other GI Surgeries/Procedures: Septic Abscess Female Surgical History: Reports: Mastectomy, Other (See Below) Other Female Surgeries/Procedures: axillary lymph node dissection Musculoskeletal Surgical History: Reports: ORIF Other Musculoskeletal Surgeries/Procedures:: hx of ORIF right Tibia and Right Femur ( has hardware in both) Oncologic Surgical History: Reports: Mastectomy Social & Family History - Family History Family Medical History: No Pertinent Family History Cardiac: Reports: Hypertension Other Cardiac Family History: Per patient, "both of my parents had heart issues." - Caffeine Use Caffeine Use: Reports: Coffee - Living Situation & Occupation Living situation: Reports: Occupation: Retired ED ROS GENERAL - Review of Systems Review Of Systems: Comprehensive ROS is negative, except as noted in HPI. ED EXAM, GENERAL - Physical Exam Exam: See Below Exam Limited By: No Limitations General Appearance: Alert, WD/WN, No Apparent Distress Ears: Hearing Grossly Normal Throat/Mouth: Normal Voice, No Airway Compromise Head: Atraumatic, Normocephalic Respiratory/Chest: No Respiratory Distress, Lungs Clear, Normal Breath Sounds, No Accessory Muscle Use Cardiovascular: Normal Peripheral Pulses, Irregularly Irregular, Other (b/l lower extremity edema, symmetric) Extremities: Normal Inspection Neurological: Alert, Normal Cognition Psychiatric: Normal Affect, Normal Mood Skin Exam: Warm, Dry, Intact, Normal Color #1 Interpretation EKG Date: 04/03/21 Time: 15:18 Rhythm: A-Fib Rate (Beats/Min): 81 [place]: Normal QRS: Normal ST-T: Normal QT: Normal Comparison: NA - No Prior EKG EKG Interpretation Comments: Atrial fibrillation with no ischemic changes Course - Vital Signs Last Recorded V/S: Last Vital Signs Temp 96.6 F L 04/03/21 15:02 Pulse 72 04/03/21 15:28 Resp 16 04/03/21 15:02 BP 134/82 04/03/21 15:28 Pulse Ox 96 04/03/21 15:28 - Orders/Labs/Meds Orders: Active Orders 24 hr Category Date Time Status Cardiac Monitoring [RC] . DIRECTED Care 04/03/21 15:15 Active Saline Lock Insert [OM.PC] Stat Oth 04/03/21 15:15 Ordered Labs: Laboratory Tests 04/03/21 04/03/21 04/03/21 Range/Units 15:10 15:10 15:10 WBC 6.89 (4.0-11.0) K/uL RBC 4.21 L (4.30-5.90) M/uL Hgb 15.4 (12.0-16.0) g/dL Hct 44.8 (36.0-46.0) % MCV 106.4 H (80.0-98.0) fL MCH 36.6 H (27.0-32.0) pg MCHC 34.4 (31.0-37.0) g/dL RDW Std Deviation 52.1 (28.0-62.0) fl RDW Coeff of [place]an 13 (11.0-15.0) % Plt Count 157 (150-400) K/uL MPV 11.30 (7.40-12.00) fL Neut % (Auto) 72.5 (48.0-80.0) % Lymph % (Auto) 19.3 (16.0-40.0) % [place] % (Auto) 6.1 (0.0-15.0) % Eos % (Auto) 1.5 (0.0-7.0) % Baso % (Auto) 0.6 (0.0-1.5) % Neut # (Auto) 5.0 (1.4-5.7) K/uL Lymph # (Auto) 1.3 (0.6-2.4) K/uL [place] # (Auto) 0.4 (0.0-0.8) K/uL Eos # (Auto) 0.1 (0.0-0.7) K/uL Baso # (Auto) 0.0 (0.0-0.1) K/uL Nucleated RBC % 0.0 /100WBC Nucleated RBCs # 0 K/uL Sodium 141 (136-145) mmol/L Potassium 4.1 (3.5-5.1) mmol/L Chloride 102 (98-107) mmol/L Carbon Dioxide 25.8 (21.0-32.0) mmol/L BUN 16 (7.0-18.0) mg/dL Creatinine 1.1 H (0.6-1.0) mg/dL Est Cr Clr Drug Dosing 42.74 mL/min Estimated GFR (MDRD) 50.0 ml/min Glucose 112 H (74-106) mg/dL Calcium 8.9 (8.5-10.1) mg/dL Total Bilirubin 0.6 (0.2-1.0) mg/dL AST 47 H (15-37) IU/L ALT 32 (14-63) IU/L Alkaline Phosphatase 106 (46-116) U/L Troponin I < 0.050 (0.000-0.056) ng/mL B-Natriuretic Peptide 82 (<100) PG/ML Total Protein 8.5 H (6.4-8.2) g/dL Albumin 3.7 (3.4-5.0) g/dL Globulin 4.8 H (2.6-4.0) g/dL Albumin/Globulin Ratio 0.8 L (0.9-1.6) 04/03/21 Range/Units 18:00 WBC (4.0-11.0) K/uL RBC (4.30-5.90) M/uL Hgb (12.0-16.0) g/dL Hct (36.0-46.0) % MCV (80.0-98.0) fL MCH (27.0-32.0) pg MCHC (31.0-37.0) g/dL RDW Std Deviation (28.0-62.0) fl RDW Coeff of [place]an (11.0-15.0) % Plt Count (150-400) K/uL MPV (7.40-12.00) fL Neut % (Auto) (48.0-80.0) % Lymph % (Auto) (16.0-40.0) % [place] % (Auto) (0.0-15.0) % Eos % (Auto) (0.0-7.0) % Baso % (Auto) (0.0-1.5) % Neut # (Auto) (1.4-5.7) K/uL Lymph # (Auto) (0.6-2.4) K/uL [place] # (Auto) (0.0-0.8) K/uL Eos # (Auto) (0.0-0.7) K/uL Baso # (Auto) (0.0-0.1) K/uL Nucleated RBC % /100WBC Nucleated RBCs # K/uL Sodium (136-145) mmol/L Potassium (3.5-5.1) mmol/L Chloride (98-107) mmol/L Carbon Dioxide (21.0-32.0) mmol/L BUN (7.0-18.0) mg/dL Creatinine (0.6-1.0) mg/dL Est Cr Clr Drug Dosing mL/min Estimated GFR (MDRD) ml/min Glucose (74-106) mg/dL Calcium (8.5-10.1) mg/dL Total Bilirubin (0.2-1.0) mg/dL AST (15-37) IU/L ALT (14-63) IU/L Alkaline Phosphatase (46-116) U/L Troponin I < 0.050 (0.000-0.056) ng/mL B-Natriuretic Peptide (<100) PG/ML Total Protein (6.4-8.2) g/dL Albumin (3.4-5.0) g/dL Globulin (2.6-4.0) g/dL Albumin/Globulin Ratio (0.9-1.6) Meds: Medications Discontinued Medications Generic Name Dose Route Start Last Admin Trade Name Freq PRN Reason Stop Dose Admin Aspirin 324 mg 04/03/21 15:15 04/03/21 15:20 Aspirin 81 Mg Tab.Chew PO 04/03/21 15:16 324 mg ONETIME ONE Administration Diltiazem HCl 25 mg 04/03/21 15:16 04/03/21 15:21 Diltiazem 25 Mg/5 Ml Sdv IVPUSH 04/03/21 15:17 25 mg ONETIME ONE Administration - Re-Assessments/Exams Free Text/Narrative Re-Assessment/Exam: 04/03/21 15:19 Patient's heart rate does jump from 90s to low 100s, will give Cardizem for control blood pressure and rate control. Will get basic labs including troponin. 04/03/21 18:48 Repeat troponin negative. Patient has follow-up with her primary care physician tomorrow. Will discharge. Return precautions discussed at length Departure - Departure Time of Disposition: 18:49 Disposition: Home, Self-Care 01 Condition: Good Clinical Impression: Hypertension Qualifiers: Hypertension type: unspecified Qualified Code(s): I10 - Essential (primary) hypertension Chest pain Qualifiers: Chest pain type: unspecified Qualified Code(s): R07.9 - Chest pain, unspecified - Discharge Information Instructions: Hypertension, Adult Referrals: Jean Burch MD [Primary Care Provider] - Forms: ED Department Discharge Additional Instructions: Your labs in the emergency department were unremarkable. You presented with high blood pressure. You recommend a medication which helps reduce your blood pressure. Please follow-up with your primary care physician tomorrow and discuss adjusting your antihypertensive medications. The following information is given to patients seen in the emergency department who are being discharged to home. This information is to outline your options for follow-up care. We provide all patients seen in our emergency department with a follow-up referral. The need for follow-up, as well as the timing and circumstances, are variable depending upon the specifics of your emergency department visit. If you don't have a primary care physician on staff, we will provide you with a referral. We always advise you to contact your personal physician following an emergency department visit to inform them of the circumstance of the visit and for follow-up with them and/or the need for any referrals to a consulting specialist. The emergency department will also refer you to a specialist when appropriate. This referral assures that you have the opportunity for follow-up care with a specialist. All of these measure are taken in an effort to provide you with optimal care, which includes your follow-up. Under all circumstances we always encourage you to contact your private physician who remains a resource for coordinating your care. When calling for follow-up care, please make the office aware that this follow-up is from your recent emergency room visit. If for any reason you are refused follow-up, please contact the [facility] Emergency Department at and asked to speak to the emergency department charge nurse. Please follow up with your primary care physician. If you do not have a primary care physician, see below: [facility] [address], [place] [id number] My [facility] [address] [place], [place] [id number] [facility] [address] [place] [address] Sepsis Event Note (ED) - Focused Exam Vital Signs: Vital Signs Temp Pulse Resp BP Pulse Ox 04/03/21 15:28 72 134/82 96 04/03/21 15:02 96.6 F L 78 16 160/89 H 98 - My Orders Last 24 Hours: My Active Orders 04/03/21 15:15 Cardiac Monitoring [RC] . DIRECTED Saline Lock Insert [OM.PC] Stat - Assessment/Plan Last 24 Hours: My Active Orders 04/03/21 15:15 Cardiac Monitoring [RC] . DIRECTED Saline Lock Insert [OM.PC] Stat
[2021-04-03] MEDS ORDERED: Aspirin 81 MG Tab.Chew PO ONE (15:15)
[2021-04-03] MEDS ORDERED: Diltiazem 25 MG/5 ML SDV IVPUSH ONE (15:16)
--- NOTE | 2021-04-03 15:46 | CR ---
Indication: Episode of chest pain Comparison: Two view chest November 18, 2019 Technique: Single AP view chest Findings: There is a right-sided Port-A-Cath in satisfactory position. There is hyperinflation and chronic interstitial change. There is persistent left basilar pleural effusion with adjacent compressive atelectasis. The right hemithorax is clear. The cardiac silhouette is mildly prominent. The bony thorax is grossly intact. Impression: Persistent left basilar pleural effusion with basilar atelectasis versus scar. Mild interstitial prominence which may represent minimal pulmonary vascular congestion. Dictated by Melecio Mooney MD @ 04/03/2021 3:46:03 PM (Electronically Signed)
[2021-04-03 15:49] LABS: BLOOD UREA NITROGEN,BUN 16 mg/dL (7.0-18.0); CARBON DIOXIDE,CO2 25.8 mmol/L (21.0-32.0); CHLORIDE,CL 102 mmol/L (98-107); GLUCOSE RANDOM 112 mg/dL (74-106); POTASSIUM,K 4.1 mmol/L (3.5-5.1); SODIUM,NA 141 mmol/L (136-145)
[2021-04-03 18:50] VITALS: BP 157/91; PULSE 67
== END 2021-04-03 18:50 | disposition home or self-care (01) ==
LOC: MW.ED 14:59
DX: I11.0 Hypertensive heart disease with heart failure (principal); I50.9 Heart failure, unspecified; E03.9 Hypothyroidism, unspecified; I48.91 Unspecified atrial fibrillation; E66.9 Obesity, unspecified; Z68.41 Body mass index [BMI] 40.0-44.9, adult; Z88.1 Allergy status to other antibiotic agents; Z88.2 Allergy status to sulfonamides; Z79.01 Long term (current) use of anticoagulants; Z79.899 Other long term (current) drug therapy
CPT/HCPCS: 36415; 71045; 80053; 83880; 84484; 85025; 93005; 96374; 99285; A9270; J3490